=== PATIENT | female | born 1945 | race Caucasian/White ===

== ENCOUNTER → 2016-03-05 | Outpatient (REF) | payer BC, MEDICARE ==
[~2016-03-05] MED LIST: ALBU17IN2 INH; ALBU83IN INH; CALCTAB60 PO; CLAR5TAB PO; DIOV160T6 PO; ESTR625TA PO; HYDR25TAB PO; LASI40TA PO; LIPI10TA PO; MOBI15TA PO; MULT1TAB10 PO; NEXI40CA PO; PAME75CA PO; REQU1TAB16 PO; VERA27.5; VITA500C14 PO; VITAMIN E PO; VITATAB11 PO
[2016-03-05 11:53] LABS: ALBUMIN 3.9 GM/DL (3.2-5.2); PERCENT SATURATION 23.5 % (13.2-37.4)
== END ==
LOC: M LABDRAWC 11:09
PROVIDERS: ATTEND Orthopaedic Surgery
DX: Z51.81 Encounter for therapeutic drug level monitoring (principal); Z79.899 Other long term (current) drug therapy; M25.569 Pain in unspecified knee; M17.12 Unilateral primary osteoarthritis, left knee

== ENCOUNTER → 2017-08-26 | Outpatient (CLI) | payer BC, MEDICARE | LOC: M CLY 07:50 | DX: R91.8 Other nonspecific abnormal finding of lung field (principal) | CPT/HCPCS: G0463 ==

== ENCOUNTER → 2017-09-29 | Outpatient (CLI) | payer BC, MEDICARE | LOC: M CLY 09:19 | DX: R91.8 Other nonspecific abnormal finding of lung field (principal) | CPT/HCPCS: 71046 ==

== ENCOUNTER → 2017-11-03 | Outpatient (REF) | payer BC, MEDICARE ==
[2017-11-03 12:04] LABS: ALBUMIN 3.6 GM/DL (3.2-5.2); ALBUMIN/GLOBULIN RATIO 0.92 (1.00-1.93); ALKALINE PHOSPHATASE 113 U/L (45-117); ALT/SGPT 17 U/L (12-78); ANION GAP 7 MEQ/L (8-16); AST/SGOT 15 U/L (7-37); BILIRUBIN,TOTAL 0.5 MG/DL (0.2-1.0); BLOOD UREA NITROGEN 31 MG/DL (7-18); CALCIUM LEVEL 9.3 MG/DL (8.8-10.2); CARBON DIOXIDE LEVEL 30 MEQ/L (21-32); CHLORIDE LEVEL 100 MEQ/L (98-107); CHOLESTEROL LEVEL 184 MG/DL (<200); CHOLESTEROL RISK RATIO 2.389 (<5); CREATININE FOR GFR 1.36 MG/DL (0.55-1.30); FREE T4 1.16 NG/DL (0.76-1.46); GLOMERULAR FILTRATION RATE 40.6 (>39); GLUCOSE, FASTING 95 MG/DL (70-100); HDL CHOLESTEROL 77 MG/DL (>40); LDL CHOLESTEROL 86 MG/DL (<100); NON-HDL-C 107 MG/DL; POTASSIUM SERUM 3.7 MEQ/L (3.5-5.1); SODIUM LEVEL 137 MEQ/L (136-145); TOTAL PROTEIN 7.5 GM/DL (6.4-8.2); TRIGLYCERIDES LEVEL 105 MG/DL (<150)
[2017-11-03 16:43] LABS: ESTIMATED AVERAGE GLUCOSE 123 MG/DL (60-110); HEMOGLOBIN A1c 5.9 %
[2017-11-03 18:51] LABS: CREATININE, URINE 84.9 MG/DL; MALB URINE SIEMENS < 5.0 MG/L
[2017-11-03 19:12] LABS: MAU/CREAT RATIO 5.9 MCG/MG (0.0-30.0)
== END ==
LOC: M SFHCCLAY 07:02
DX: E11.9 Type 2 diabetes mellitus without complications (principal); I10 Essential (primary) hypertension; E78.00 Pure hypercholesterolemia, unspecified
CPT/HCPCS: 84443

== ENCOUNTER → 2017-11-03 | Outpatient (CLI) | payer BC, MEDICARE | LOC: M CLY 07:19 | DX: J18.0 Bronchopneumonia, unspecified organism (principal) | CPT/HCPCS: 71046 ==

== ENCOUNTER → 2017-11-09 | Outpatient (REF) | payer BC, MEDICARE ==
[2017-11-09 17:32] LABS: ALBUMIN 3.4 GM/DL (3.2-5.2); ANION GAP 13 MEQ/L (8-16); BLOOD UREA NITROGEN 24 MG/DL (7-18); CALCIUM LEVEL 9.2 MG/DL (8.8-10.2); CARBON DIOXIDE LEVEL 26 MEQ/L (21-32); CHLORIDE LEVEL 103 MEQ/L (98-107); CREATININE FOR GFR 1.05 MG/DL (0.55-1.30); GLOMERULAR FILTRATION RATE 54.7 (>39); GLUCOSE, FASTING 89 MG/DL (70-100); PHOSPHORUS LEVEL 2.9 MG/DL (2.5-4.9); POTASSIUM SERUM 3.4 MEQ/L (3.5-5.1); SODIUM LEVEL 142 MEQ/L (136-145)
== END ==
LOC: M SFHCCLAY 14:11
DX: I10 Essential (primary) hypertension (principal)
CPT/HCPCS: 80069

== ENCOUNTER → 2018-01-19 | Outpatient (REF) | payer BC, MEDICARE ==
[2018-01-19 16:57] LABS: ANION GAP 9 MEQ/L (8-16); BLOOD UREA NITROGEN 31 MG/DL (7-18); CALCIUM LEVEL 9.5 MG/DL (8.8-10.2); CARBON DIOXIDE LEVEL 31 MEQ/L (21-32); CHLORIDE LEVEL 102 MEQ/L (98-107); CREATININE FOR GFR 1.36 MG/DL (0.55-1.30); GLOMERULAR FILTRATION RATE 40.5 (>39); GLUCOSE, FASTING 119 MG/DL (70-100); NT-PRO BNP 94 PG/ML (<125); POTASSIUM SERUM 3.2 MEQ/L (3.5-5.1); SODIUM LEVEL 142 MEQ/L (136-145)
== END ==
LOC: M SFHCCLAY 13:08
DX: R05 Cough (principal); I10 Essential (primary) hypertension
CPT/HCPCS: 80048

== ENCOUNTER → 2018-01-27 | Outpatient (REF) | payer BC, MEDICARE ==
[2018-01-27 11:39] LABS: ANION GAP 7 MEQ/L (8-16); BLOOD UREA NITROGEN 16 MG/DL (7-18); CALCIUM LEVEL 8.6 MG/DL (8.8-10.2); CARBON DIOXIDE LEVEL 25 MEQ/L (21-32); CHLORIDE LEVEL 110 MEQ/L (98-107); CREATININE FOR GFR 0.98 MG/DL (0.55-1.30); GLOMERULAR FILTRATION RATE 59.1 (>39); GLUCOSE, FASTING 93 MG/DL (70-100); POTASSIUM SERUM 4.7 MEQ/L (3.5-5.1); SODIUM LEVEL 142 MEQ/L (136-145)
== END ==
LOC: M SFHCCLAY 08:56
DX: I10 Essential (primary) hypertension (principal)
CPT/HCPCS: 80048

== ENCOUNTER → 2018-04-13 | Outpatient (REF) | payer BC, MEDICARE ==
[~2018-04-13] MED LIST changes: -LASI40TA PO; +LASI40TA9 PO
== END ==
LOC: M SFHCCLAY 16:02
PROVIDERS: ATTEND Family Medicine
DX: J40 Bronchitis, not specified as acute or chronic (principal)

== ENCOUNTER → 2018-04-13 | Outpatient (CLI) | payer BC, MEDICARE ==
--- NOTE | 2018-04-13 13:17 | REP ---
Clinical: Bronchitis . Comparison: 11/03/2017 . Technique: PA and lateral. Findings: The mediastinum and cardiac silhouette are normal. The lung fischer are clear and without acute consolidation, effusion, or pneumothorax. The skeletal structures are intact and normal. Impression: 1. No acute cardiopulmonary process. Electronically Signed by Artem Ramon MD 04/13/2018 01:09 P
== END ==
LOC: M CLY 12:12
PROVIDERS: ATTEND Family Medicine
DX: J40 Bronchitis, not specified as acute or chronic (principal)

== ENCOUNTER → 2019-02-02 | Outpatient (REF) | payer BC, MEDICARE ==
[~2019-02-02] MED LIST changes: +HYDR-2541 PO; -HYDR25TAB PO
[2019-02-02 11:35] LABS: HEMATOCRIT 36.8 % (36.0-47.0); HEMOGLOBIN 11.6 g/dl (12.0-15.5); MEAN CORPUSCULAR HGB CONC 31.5 g/dl (32.0-36.5); MEAN CORPUSCULAR VOLUME 95.1 fl (80.0-96.0); PLATELET COUNT, AUTOMATED 269 10^3/uL (150-450); RED BLOOD COUNT 3.87 10^6/uL (4.00-5.40); WHITE BLOOD COUNT 8.1 10^3/uL (4.0-10.0)
[2019-02-02 11:47] LABS: ALBUMIN 3.3 GM/DL (3.2-5.2); BILIRUBIN,TOTAL 0.4 MG/DL (0.2-1.0); CHOLESTEROL RISK RATIO 2.195 (<5); CREATININE FOR GFR 1.26 MG/DL (0.55-1.30); GLOMERULAR FILTRATION RATE 44.1 (>39); THYROID STIMULATING HORMONE 4.14 uIU/ML (0.358-3.740)
[2019-02-02 12:02] LABS: HEMOGLOBIN A1c 5.9 %
[2019-02-02 17:07] LABS: MALB URINE SIEMENS 7.2 MG/L; MAU/CREAT RATIO 6.6 MCG/MG (0.0-30.0)
[2019-02-03 12:08] LABS: HEPATITIS C VIRUS ABY INDEX 0.2 INDEX (<0.8)
== END ==
LOC: M SFHCCLAY 08:05
PROVIDERS: ATTEND Family Medicine
DX: Z20.9 Contact with and (suspected) exposure to unspecified communicable disease (principal); I10 Essential (primary) hypertension; E11.9 Type 2 diabetes mellitus without complications; E78.00 Pure hypercholesterolemia, unspecified

== ENCOUNTER → 2019-07-13 | Outpatient (REF) | payer BC, MEDICARE ==
[2019-07-13 12:45] LABS: ALBUMIN 3.5 GM/DL (3.2-5.2); BILIRUBIN,TOTAL 0.4 MG/DL (0.2-1.0); CALCIUM LEVEL 9.2 MG/DL (8.8-10.2); CREATININE FOR GFR 1.13 MG/DL (0.55-1.30); FREE T4 1.35 NG/DL (0.76-1.46); POTASSIUM SERUM 4.1 MEQ/L (3.5-5.1); THYROID STIMULATING HORMONE 2.51 uIU/ML (0.358-3.740); TOTAL PROTEIN 7.1 GM/DL (6.4-8.2)
[2019-07-13 18:40] LABS: CREATININE, URINE 95.2 MG/DL
[2019-07-13 21:44] LABS: MALB URINE SIEMENS 8.7 MG/L; MAU/CREAT RATIO 9.1 MCG/MG (0.0-30.0)
== END ==
LOC: M SFHCCLAY 09:35
PROVIDERS: ATTEND Family Medicine
DX: I10 Essential (primary) hypertension (principal); E11.9 Type 2 diabetes mellitus without complications; R79.89 Other specified abnormal findings of blood chemistry

== ENCOUNTER → 2019-07-19 | Outpatient (REF) | payer BC, MEDICARE ==
[2019-07-19 16:46] LABS: HEMATOCRIT 38.3 % (36.0-47.0); HEMOGLOBIN 12.1 g/dl (12.0-15.5); MEAN CORPUSCULAR HEMOGLOBIN 29.5 pg (27.0-33.0); MEAN CORPUSCULAR HGB CONC 31.6 g/dl (32.0-36.5); MEAN CORPUSCULAR VOLUME 93.4 fl (80.0-96.0); PLATELET COUNT, AUTOMATED 254 10^3/uL (150-450); WHITE BLOOD COUNT 6.3 10^3/uL (4.0-10.0)
[2019-07-19 17:09] LABS: HEMOGLOBIN A1c 6.5 %
[2019-07-19 17:59] LABS: ERYTHROCYTE SEDIMENTATION RATE 49 mm/hr (0-30)
[2019-07-22 18:22] LABS: ANA (HEP2) Negative (.); CYCLIC CITRULLINATED PEPTIDE 6 units (0-19); Lyme Disease IgG/IgM Antibodie <0.91 ISR (0.00-0.90); Lyme Disease IgM Ab Quantitati <0.80 index (0.00-0.79)
== END ==
LOC: M SFHCCLAY 10:26
PROVIDERS: ATTEND Family Medicine
DX: E11.9 Type 2 diabetes mellitus without complications (principal); I87.2 Venous insufficiency (chronic) (peripheral); R53.82 Chronic fatigue, unspecified

== ENCOUNTER → 2019-08-14 | Outpatient (CLI) | payer BC ==
[~2019-08-14] MED LIST changes: +CRES10TA PO; +HYDR25TAB PO; +LOSA100T50 PO; +MOME50SP; +MULTTAB86 PO; +PROV108A INH; +REQU2TAB PO; +TOPR25TA PO; +TREL1AER IN
== END ==
LOC: M LABSMTC 09:28
PROVIDERS: ATTEND Anesthesiology
DX: Z01.818 Encounter for other preprocedural examination (principal); Z11.59 Encounter for screening for other viral diseases
CPT/HCPCS: C9803; U0003

== ENCOUNTER 2019-08-17 06:50 | Day surgery (SDC) | payer BC ==
[~2019-08-17] VITALS: Ht 154.9 cm; Wt 98.4 kg
[2019-08-17] MEDS ORDERED: LIDOCAINE 2% MDV 20ML VIAL As Ordered ONE (06:59)
[2019-08-17] MEDS ORDERED: propofoL 200 MG/20 ML VIAL As Ordered ONE ×6 (06:59→08:38)
[2019-08-17] MEDS ORDERED: NS 1,000 ML IV ONE (07:00)
--- NOTE | 2019-08-17 08:51 | ROOR ---
Patient Name: Carolina Patino Procedure Date: 08/17/2019 7:29 AM Date of : 1945 Age: 73 Room: [facility] Gender: Female Note Status: Finalized Procedure: Upper GI endoscopy Indications: Follow-up of esophageal reflux Providers: Corbin Carmen MD Referring MD: Shin French MD Requesting Provider: Medicines: Monitored Anesthesia Care Complications: No immediate complications. Procedure: Pre-Anesthesia Assessment: - Prior to the procedure, a History and Physical was performed, and patient medications and allergies were reviewed. The patient is competent. The risks and benefits of the procedure and the sedation options and risks were discussed with the patient. All questions were answered and informed consent was obtained. Patient identification and proposed procedure were verified by the physician, the nurse and the business process associate in the procedure room. Mental Status Examination: alert and oriented. CV Examination: regular rate and rhythm. Prophylactic Antibiotics: The patient does not require prophylactic antibiotics. Prior Anticoagulants: The patient has taken no previous anticoagulant or antiplatelet agents. ASA Grade Assessment: III - A patient with severe systemic disease. After reviewing the risks and benefits, the patient was deemed in satisfactory condition to undergo the procedure. The anesthesia plan was to use monitored anesthesia care (MAC). Immediately prior to administration of medications, the patient was re-assessed for adequacy to receive sedatives. The heart rate, respiratory rate, oxygen saturations, blood pressure, adequacy of pulmonary ventilation, and response to care were monitored throughout the procedure. The physical status of the patient was re-assessed after the procedure. The Endoscope was introduced through the mouth, and advanced to the third part of duodenum. The upper GI endoscopy was accomplished without difficulty. The patient tolerated the procedure well. Findings: The examined esophagus was normal. A small hiatal hernia was present. Multiple small sessile polyps were found in the gastric fundus and on the greater curvature of the stomach. Localized mild inflammation characterized by erythema was found on the posterior wall of the stomach. The examined duodenum was normal. Impression: - Normal esophagus. - Small hiatal hernia. - Multiple gastric polyps. - Chronic gastritis. - Normal examined duodenum. - No specimens collected. Recommendation: - Discharge patient to home. - Resume previous diet. - Continue present medications. Corbin Carmen MD Corbin Carmen MD 08/17/2019 8:50:36 AM Electronically signed by Corbin Carmen MD Number of Addenda: 0 Note Initiated On: 08/17/2019 7:29 AM Estimated Blood Loss: Estimated blood loss: none.
[2019-08-17 09:00] VITALS: BP 160/69
--- NOTE | 2019-08-17 09:57 | ROOR ---
Patient Name: Carolina Patino Procedure Date: 08/17/2019 7:31 AM Date of : 1945 Age: 73 Room: [facility] Gender: Female Note Status: Finalized Procedure: Colonoscopy Indications: High risk colon cancer surveillance: Personal history of non-advanced adenoma, Last colonoscopy: June 2015 Providers: Corbin Carmen MD Referring MD: Shin French MD Requesting Provider: Medicines: Monitored Anesthesia Care Complications: No immediate complications. Procedure: Pre-Anesthesia Assessment: - Prior to the procedure, a History and Physical was performed, and patient medications and allergies were reviewed. The patient is competent. The risks and benefits of the procedure and the sedation options and risks were discussed with the patient. All questions were answered and informed consent was obtained. Patient identification and proposed procedure were verified by the physician, the nurse and the soft iron inspector in the procedure room. Mental Status Examination: alert and oriented. CV Examination: regular rate and rhythm. Prophylactic Antibiotics: The patient does not require prophylactic antibiotics. Prior Anticoagulants: The patient has taken no previous anticoagulant or antiplatelet agents. ASA Grade Assessment: III - A patient with severe systemic disease. After reviewing the risks and benefits, the patient was deemed in satisfactory condition to undergo the procedure. The anesthesia plan was to use monitored anesthesia care (MAC). Immediately prior to administration of medications, the patient was re-assessed for adequacy to receive sedatives. The heart rate, respiratory rate, oxygen saturations, blood pressure, adequacy of pulmonary ventilation, and response to care were monitored throughout the procedure. The physical status of the patient was re-assessed after the procedure. The Colonoscope was introduced through the anus and advanced to the cecum, identified by appendiceal orifice and ileocecal valve. The colonoscopy was performed without difficulty. The patient tolerated the procedure well. The quality of the bowel preparation was excellent. Findings: The perianal and digital rectal examinations were normal. Two sessile polyps were found in the cecum. The polyps were 3 to 5 mm in size. These polyps were removed with a hot snare. Resection and retrieval were complete. Two sessile polyps were found in the ascending colon. The polyps were 4 to 6 mm in size. These polyps were removed with a hot snare. Resection and retrieval were complete. A 8 mm polyp was found in the hepatic flexure. The polyp was sessile. The polyp was removed with a hot snare. Resection and retrieval were complete. Eight sessile polyps were found in the transverse colon. The polyps were 3 to 7 mm in size. These polyps were removed with a hot snare. Resection and retrieval were complete. Two sessile polyps were found in the descending colon. The polyps were 3 to 5 mm in size. These polyps were removed with a hot snare. Resection and retrieval were complete. Multiple small-mouthed diverticula were found in the sigmoid colon. A 3 mm polyp was found in the sigmoid colon. The polyp was sessile. Fulguration to ablate the lesion by snare was successful. Impression: - Two 3 to 5 mm polyps in the cecum, removed with a hot snare. Resected and retrieved. - Two 4 to 6 mm polyps in the ascending colon, removed with a hot snare. Resected and retrieved. - One 8 mm polyp at the hepatic flexure, removed with a hot snare. Resected and retrieved. - Eight 3 to 7 mm polyps in the transverse colon, removed with a hot snare. Resected and retrieved. - Two 3 to 5 mm polyps in the descending colon, removed with a hot snare. Resected and retrieved. - Diverticulosis in the sigmoid colon. Recommendation: - Discharge patient to home. Corbin Carmen MD Corbin Carmen MD 08/17/2019 9:57:07 AM Electronically signed by Corbin Carmen MD Number of Addenda: 0 Note Initiated On: 08/17/2019 7:31 AM Estimated Blood Loss: Estimated blood loss: none.
== END 2019-08-17 09:19 | disposition home or self-care (01) ==
LOC: M OPP 06:50
PROVIDERS: ATTEND Surgery
DX: Z12.11 Encounter for screening for malignant neoplasm of colon (principal); Z86.010 Personal history of colon polyps; Z80.0 Family history of malignant neoplasm of digestive organs; D12.2 Benign neoplasm of ascending colon; D12.3 Benign neoplasm of transverse colon; D12.4 Benign neoplasm of descending colon; K57.30 Diverticulosis of large intestine without perforation or abscess without bleeding; K21.9 Gastro-esophageal reflux disease without esophagitis; K44.9 Diaphragmatic hernia without obstruction or gangrene; K29.70 Gastritis, unspecified, without bleeding; E11.9 Type 2 diabetes mellitus without complications; Z79.899 Other long term (current) drug therapy; Z88.2 Allergy status to sulfonamides; Z88.8 Allergy status to other drugs, medicaments and biological substances

== ENCOUNTER → 2020-01-23 | Outpatient (REF) | payer SELFPAY ==
[~2020-01-23] MED LIST changes: +ACET-683 PO; +AREDS PO; +BENZ-18 PO; +BETA0.0543 TOP; +DOXY100T PO; +HYDR-3490 PO; -HYDR25TAB PO; +MUCI600T31 PO; +NORT50CA PO; +PRED10TA2 PO; -TREL1AER IN; +TREL1AER INH
== END ==
LOC: M LABSMTC 13:39 → EDSTATUS 15:30
PROVIDERS: ATTEND Pediatrics
DX: Z11.59 Encounter for screening for other viral diseases (principal)

== ENCOUNTER 2020-02-17 19:08 | Inpatient (IN) | payer BC ==
[~2020-02-17] VITALS: Ht 154.9 cm; Wt 100.0 kg
[~2020-02-17 19:08] MED LIST changes: -ACET-683 PO; -AREDS PO; -BENZ-18 PO; -BETA0.0543 TOP; -DOXY100T PO; -HYDR-3490 PO; +HYDR25TAB PO; -MUCI600T31 PO; -NORT50CA PO; -PRED10TA2 PO
[2020-02-17] MEDS ORDERED: NS 500 ML IV ONE (19:30)
[2020-02-17] MEDS ORDERED: NORT50CA PO (20:06)
[2020-02-17] MEDS ORDERED: ACET-683 PO (20:07)
[2020-02-17] MEDS ORDERED: DOXY100T PO (20:07)
[2020-02-17] MEDS ORDERED: BETA0.0543 TOP (20:07)
[2020-02-17 20:08] LABS: BASO % 0.4 % (0.0-1.0); HEMATOCRIT 37.1 % (36.0-47.0); HEMOGLOBIN 11.7 g/dl (12.0-15.5); LYMPH # 0.4 10^3/uL (1.5-5.0); LYMPH % 8.3 % (24.0-44.0); MEAN CORPUSCULAR HEMOGLOBIN 29.3 pg (27.0-33.0); MEAN CORPUSCULAR HGB CONC 31.5 g/dl (32.0-36.5); MEAN CORPUSCULAR VOLUME 92.8 fl (80.0-96.0); MONO # 0.1 10^3/uL (0.0-0.8); MONO % 2.4 % (0.0-5.0); NEUTROPHILS # 4.5 10^3/uL (1.5-8.5); NEUTROPHILS % 88.3 % (36.0-66.0); PLATELET COUNT, AUTOMATED 167 10^3/uL (150-450); WHITE BLOOD COUNT 5.1 10^3/uL (4.0-10.0)
[2020-02-17] MEDS ORDERED: AREDS PO (20:08)
--- NOTE | 2020-02-17 20:16 | REP ---
INDICATION: Coronavirus workup COMPARISON: 04/13/2018 TECHNIQUE: Portable AP view of the chest FINDINGS: Examination is limited by portable technique and poor inspiratory effort. Scattered airspace disease cannot be excluded. No obvious effusion. No pneumothorax. Cardiac silhouette normal.. IMPRESSION: Limited examination. Cannot exclude scattered airspace disease. <Electronically signed by Artem Ramon > 02/17/202011
[2020-02-17] MEDS: COMBIVENT RESPIMAT 100-20MCG INHALER 4GM INH SCH ×2 (20:45→20:55)
[2020-02-17 20:59] LABS: ALBUMIN 2.8 GM/DL (3.2-5.2); ALT/SGPT 19 U/L (12-78); BILIRUBIN,TOTAL 0.5 MG/DL (0.2-1.0); BLOOD UREA NITROGEN 19 MG/DL (7-18); CALCIUM LEVEL 8.2 MG/DL (8.8-10.2); CARBON DIOXIDE LEVEL 27 MEQ/L (21-32); CHLORIDE LEVEL 105 MEQ/L (98-107); CK-MB VALUE MASS 2.3 NG/ML (<3.6); CPK CREATINE PHOSPHOKINASE 383 U/L (26-192); CREATININE FOR GFR 1.28 MG/DL (0.55-1.30); GLOMERULAR FILTRATION RATE 43.2 (>39); GLUCOSE, FASTING 118 MG/DL (70-100); MAGNESIUM LEVEL 1.3 MG/DL (1.8-2.4); POTASSIUM SERUM 3.2 MEQ/L (3.5-5.1); SODIUM LEVEL 140 MEQ/L (136-145); TOTAL PROTEIN 6.5 GM/DL (6.4-8.2); TROPONIN I < 0.02 NG/ML (< 0.10)
[2020-02-17 21:19] LABS: ABG BASE EXCESS -1.6 (-2.0-2.0); ABG O2 SATURATION 96.4 % (95.0-99.0); ABG PARTIAL PRESSURE CO2 33.4 mmHg (35.0-45.0); ABG PARTIAL PRESSURE O2 82.1 mmHg (75.0-100.0); ABG STANDARD HCO3 23.1 MEQ/L (22.0-26.0); ABG pH (ARTERIAL) 7.436 UNITS (7.350-7.450)
--- NOTE | 2020-02-17 23:40 | HPEPDOC ---
[facility] Medical History & Physical Date of Admission Feb 17, 2020 Date of Service: Feb 17, 2020 History and Physical CHIEF COMPLAINT: Shortness of breath HISTORY OF PRESENT ILLNESS: 74-year-old female history of hypertension, diabetes, obesity was diagnosed with Covid infection 6 days ago around [place] and per symptoms have been progressively worsening since then. She presented today to the hospital due to weakness fatigue dizziness and increased shortness of breath. She tells me she's been having a headache and the cough she denies any fevers or chills at home. She denies any diarrhea. PAST MEDICAL HISTORY: Hypertension GERD Hyperlipidemia Depression/anxiety Osteoarthritis Hsp-[id number] diabetes Allergic rhinitis Asthma PAST SURGICAL HISTORY: Tubal ligation Hysterectomy Gallbladder removal Breast reduction surgery SOCIAL HISTORY: Denies alcohol use Denies tobacco use Denies illicit drug use FAMILY HISTORY: Reviewed and none contributory to this admission ALLERGIES: Please see below. REVIEW OF SYSTEMS: 10 point review of systems complete all negative otherwise stated in HPI HOME MEDICATIONS: Please see below. PHYSICAL EXAMINATION: Constitutional: Awake and alert, in no apparent distress. Obese patient. ENT: Sclera are clear Respiratory: Diminished breath sounds bilaterally. No respiratory distress. No use of accessory muscles. On 2 L of oxygen by nasal cannula saturating at 98% Cardiovascular: Regular heart rate no murmur Gastrointestinal: Abdomen is soft, obese, non distended, non tender Musculoskeletal: No lower extremityr edema. Neurologic: No focal neurological deficit. Mental Status: A&O x3, normal affect Skin: Warm, dry LABORATORY DATA: See below. IMAGING: Chest x-ray shows no acute pathology MICROBIOLOGY: Please see below. ASSESSMENT/PLAN 74-year-old female presents with shortness of breath secondary to Covid 19 infection admitted for medical management. # Shortness of breath 2/2 Covid 19 infection: Has multiple risk factors for poor outcomes with Covid 19 infection such as obesity, hypertension and diabetes. - Trend inflammatory markers. IV Decadron daily. Discuss in AM with pulm if she should receive rimdasivir. Lovenox. Oxygen target 90% or better. PT/OT. No pneumonia seen no need for antibiotics for now, follow-up pro-calcitonin in a.m. # Asthma: Continue albuterol inhaler as needed # Hypertension: Continue home meds. Monitor and titrate # GERD: Continue Nexium # DM: ISS. Frequent Accu-Cheks. Hypoglycemic precautions. # Anxiety/depression: Continue amitriptyline home med # obesity: Complicates care # DVT prophylaxis: Mayela García Yousef Hospitalist Vital Signs Vital Signs Date Time Temp Pulse Resp B/P (MAP) Pulse Ox O2 Delivery O2 Flow Rate FiO2 02/17/20 20:02 98 Nasal Cannula 2.0 02/17/20 19:52 99.9 103 20 160/60 (93) Laboratory Data Labs 24H Laboratory Tests 2 02/17/20 19:59: Immature Granulocyte % (Auto) 0.6, Neutrophils (%) (Auto) 88.3H, Lymphocytes (%) (Auto) 8.3L, Monocytes (%) (Auto) 2.4, Eosinophils (%) (Auto) 0.0, Basophils (%) (Auto) 0.4, Neutrophils # (Auto) 4.5, Lymphocytes # (Auto) 0.4L, Monocytes # (Auto) 0.1, Eosinophils # (Auto) 0.0, Basophils # (Auto) 0.0, Nucleated Red Blood Cells % (auto) 0.0, Anion Gap 8, Glomerular Filtration Rate 43.2, Lactic Acid Level 1.8, Calcium Level 8.2L, Magnesium Level 1.3L, Total Bilirubin 0.5, Aspartate Amino Transf (AST/SGOT) 39H, Alanine Aminotransferase (ALT/SGPT) 19, Alkaline Phosphatase 86, Total Creatine Kinase 383H, Creatine Kinase MB 2.3, Creatine Kinase MB Relative Index 0.60, Troponin I < 0.02, C-Reactive Protein, Quantitative 27.40H, Total Protein 6.5, Albumin 2.8L, Albumin/Globulin Ratio 0.8L 02/17/20 20:53: Blood Gas Bicarbonate Standard 23.1, Arterial Blood pH 7.436, Arterial Blood Partial Pressure CO2 33.4L, Arterial Blood Partial Pressure O2 82.1, Arterial Blood Total CO2 23.0, Arterial Blood HCO3 22.0, Arterial Blood Base Excess -1.6, Arterial Blood Oxygen Saturation 96.4 CBC/BMP Laboratory Tests 02/17/20 19:59 Microbiology Microbiology 02/17/20 Blood Culture, Received Pending 02/17/20 Blood Culture, Received Pending Home Medications Scheduled Albuterol Sulfate (Proventil Hfa) 6.7 Gm Hfa.aer.ad, 2 PUFF INH QID for wheezing Conjugated Estrogens (Premarin) 0.625 Mg Tab, 0.625 MG PO 3XW Desloratadine (Clarinex) 5 Mg Tab, 5 MG PO DAILY Doxycycline Hyclate (Doxycycline Hyclate) 100 Mg Tablet, 100 MG PO BID STARTED 02/04/20 X 10 DAYS Esomeprazole Magnesium (Nexium) 40 Mg Cap, 40 MG PO BID Fluticasone/Umeclidin/Vilanter (Trelegy Ellipta 100-62.5-25) 1 Each Blst.w.dev, 1 PUFF INH DAILY Hydrochlorothiazide (Hydrochlorothiazide) 25 Mg Tablet, 25 MG PO DAILY Losartan Potassium (Losartan Potassium) 100 Mg Tablet, 100 MG PO DAILY Metoprolol Succinate (Toprol Xl) 25 Mg Tab.er.24h, 12.5 MG PO DAILY Mometasone Furoate Monohydrate (Nasonex) 17 Gm [place].pump, 1 SPRAY NA DAILY Multivitamin (Multi-Vitamin Daily) 1 Each Tablet, 1 TAB PO DAILY Nortriptyline HCl (Nortriptyline HCl) 50 Mg Capsule, 50 MG PO QHS MAY TAKE 1-2 CAPS QHS Ropinirole HCl (Requip Xl) 2 Mg Tab.er.24h, 2 MG PO QHS MAY TAKE 1-2 TABS QHS Rosuvastatin Calcium (Crestor) 10 Mg Tablet, 10 MG PO DAILY [Areds] , 1 TAB PO DAILY Scheduled PRN Acetaminophen (Acetaminophen) 500 Mg Tablet, 1,000 MG PO Q6H PRN for PAIN / FEVER Albuterol Sulf (Albuterol Sulfate) 2.5 Mg/3 Ml Nebu, 2.5 MG INH Q4HP PRN for BRONCHOSPASM Betamethasone Dipropionate (Betamethasone Dipropionate) 0.05% Cream..g., 1 APLCT TOP BID PRN for DRY SKIN ELBOWS Furosemide (Lasix) 40 Mg Tab, 40 MG PO DAILYPRN PRN for FOR COMFORT Allergies Coded Allergies: Sulfa (Sulfonamide Antibiotics) (Verified Allergy, Severe, mouth swelling, 08/03/19) levofloxacin (Verified Adverse Reaction, Mild, muscle aches, 08/03/19) propoxyphene (Verified Adverse Reaction, Mild, nausea, 08/03/19) A-FIB/CHADSVASC A-FIB History Current/History of A-Fib/PAF?: No GOGORAS LOZA MD Feb 17, 2020 23:39
[2020-02-18] VITALS (9 sets, daily range): BP systolic 138–148; BP diastolic 63–65; O2SAT 86–96
[2020-02-18] MEDS: COMBIVENT RESPIMAT 100-20MCG INHALER 4GM INH SCH
[2020-02-18] MEDS ORDERED: FUROSEMIDE 40 MG TAB PO PRN (01:00)
[2020-02-18] MEDS: ACETAMINOPHEN TAB 650MG DOSE (2X325MG) PO PRN ×2 (01:17→08:21)
[2020-02-18] MEDS: ENOXAPARIN 40MG/0.4ML SYRINGE (J1650 PER 10MG) SC SCH ×2 (01:18→08:20)
[2020-02-18 07:52] LABS: BASO % 0.2 % (0.0-1.0); HEMATOCRIT 35.7 % (36.0-47.0); HEMOGLOBIN 11.2 g/dl (12.0-15.5); LYMPH # 0.5 10^3/uL (1.5-5.0); LYMPH % 9.2 % (24.0-44.0); MEAN CORPUSCULAR HEMOGLOBIN 29.2 pg (27.0-33.0); MEAN CORPUSCULAR HGB CONC 31.4 g/dl (32.0-36.5); MONO # 0.2 10^3/uL (0.0-0.8); MONO % 2.7 % (0.0-5.0); NEUTROPHILS # 4.8 10^3/uL (1.5-8.5); NEUTROPHILS % 86.6 % (36.0-66.0); PLATELET COUNT, AUTOMATED 177 10^3/uL (150-450); RED BLOOD COUNT 3.84 10^6/uL (4.00-5.40); WHITE BLOOD COUNT 5.6 10^3/uL (4.0-10.0)
[2020-02-18 08:10] LABS: INR 1.15
[2020-02-18 08:11] LABS: PARTIAL THROMBOPLASTIN TIME 45.2 SECONDS (24.2-38.5)
[2020-02-18 08:15] LABS: D-DIMER QUANT 2432.03 ng/ml (<500)
[2020-02-18] MEDS: DOXYCYCLINE HYCLATE 100 MG in D5W MINI-BAG PLUS 100 ML IV SCH ×2 (08:18→20:07)
[2020-02-18] MEDS: MAG SULF 1GM/100ML (MAG RUN) 1 GM in IV 1 EA IV SCH ×2 (08:19→09:38)
[2020-02-18] MEDS: ROSUVASTATIN 10 MG TAB (CRESTOR) PO SCH (08:21)
[2020-02-18] MEDS: LOSARTAN 50MG TABLET PO SCH (08:21)
[2020-02-18] MEDS: hydroCHLOROthiazide 25 MG TAB PO SCH (08:22)
[2020-02-18] MEDS: PANTOPRAZOLE 40MG TAB (PROTONIX) PO SCH ×2 (08:22→20:07)
[2020-02-18] MEDS: METOPROLOL SUCC *XL* 12.5MG PER 1/2 TAB (TopROL *XL*) PO SCH (08:22)
--- NOTE | 2020-02-18 08:25 | REP ---
INDICATION: COVID COMPARISON: 02/17/2020 TECHNIQUE: Portable AP view of the chest FINDINGS: Diffuse bilateral opacities (left greater than right) significantly increased from prior examination and consistent with COVID-19 pulmonary disease. Small effusions cannot be excluded. No pneumothorax. Mediastinum and cardiac silhouette are incompletely evaluated due to overlying opacities. IMPRESSION: Significant diffuse bilateral infiltrates compatible with COVID-19 pulmonary disease. <Electronically signed by Artem Ramon > 02/18/20 [id number]
[2020-02-18 08:40] LABS: ALBUMIN 2.4 GM/DL (3.2-5.2); ALT/SGPT 17 U/L (12-78); BILIRUBIN,DIRECT 0.2 MG/DL (0.0-0.2); BILIRUBIN,TOTAL 0.4 MG/DL (0.2-1.0); BLOOD UREA NITROGEN 14 MG/DL (7-18); CARBON DIOXIDE LEVEL 25 MEQ/L (21-32); CHLORIDE LEVEL 109 MEQ/L (98-107); CK-MB VALUE MASS 2.4 NG/ML (<3.6); CPK CREATINE PHOSPHOKINASE 404 U/L (26-192); CREATININE FOR GFR 0.96 MG/DL (0.55-1.30); FERRITIN 243 NG/ML (8-252); GLOMERULAR FILTRATION RATE > 60.0 (>39); GLUCOSE, FASTING 105 MG/DL (70-100); LDH LACTATE DEHYDROGENASE 437 U/L (84-246); MB/CK RELATIVE INDEX 0.59 (< OR =4); NT-PRO BNP 622 PG/ML (<450); POTASSIUM SERUM 3.4 MEQ/L (3.5-5.1); SODIUM LEVEL 141 MEQ/L (136-145); TROPONIN I < 0.02 NG/ML (< 0.10)
[2020-02-18] MEDS ORDERED: POTASSIUM CHLORIDE 10 MEQ SR TABLET PO ONE (09:00)
[2020-02-18] MEDS ORDERED: dexameTHASONE 4 MG/ML 1ML VIAL (J1100 PER 1MG) IV SCH (09:00)
[2020-02-18] MEDS: cefTRIAXone SOD 1 GM in D5W MINI-BAG PLUS 50 ML IV SCH (09:32)
[2020-02-18] MEDS: ALBUTEROL 90 MCG/ACT 8GM HFA INHALER INH SCH ×4 (09:50→19:02)
[2020-02-18 10:09] LABS: ABG BASE EXCESS 0.3 (-2.0-2.0); ABG HCO3 24.6 MEQ/L (22.0-26.0); ABG O2 SATURATION 96.9 % (95.0-99.0); ABG PARTIAL PRESSURE CO2 38.4 mmHg (35.0-45.0); ABG PARTIAL PRESSURE O2 83.7 mmHg (75.0-100.0); ABG STANDARD HCO3 24.8 MEQ/L (22.0-26.0); ABG TOTAL CO2 25.8 MEQ/L (23.0-31.0); ABG pH (ARTERIAL) 7.425 UNITS (7.350-7.450)
--- NOTE | 2020-02-18 10:49 | IPNPDOC ---
Text Note Date of Service The patient was seen on 02/18/20. NOTE Subjective: Patient is a 74-year-old female with a PMHx of HTN, DM2, Obesity and recent diagnosis of COVID19 (~ 6 days ago). Patient reported that she has presented to the hospital with increased weakness, fatigue and dizziness and worsening shortness of breath. Patient was admitted to the hospitalist service for further evaluation and treatment Patient was transferred to PCU status this morning after she was noted to require higher amounts of oxygen. Patient was seen and examined at the bedside. Currently patient reports that she is short of breath has been coughing. Denies any chest pain or palpitations. Has not experience any vomiting, but does report some nausea. Denies any abdominal pain, diarrhea, or urinary discomfort. Objective: Vitals (See below) General: Sitting up in bed, appears to be coughing significantly, no significant respiratory distress, AAOx3 HEENT: NC, AT CVS: +S1S2 Lungs: Air entry appears to be diminished at left lung field, no appreciable wheezing, some rhonchi can be appreciated, no crackles Abdomen: Soft, nondistended and nontender Extremities: Lower tremors do not reveal any edema, - Calf tenderness Imaging: CXR 1/2: Limited examination. Cannot exclude scattered airspace disease. CXR 02/17: Significant diffuse bilateral infiltrates compatible with COVID-19 pulmonary disease. Assessment and plan: Acute hypoxic respiratory failure - likely 2/2 COVID19 - She presented to the emergency room with complaints of shortness of breath - Currently patient is on high flow nasal cannula oxygen at 8 L - COVID positive (~02/10) - needs to be confirmed - Inflammatory markers are elevated - c/w Dexamethasone (Day #1) - Will start Ceftriaxone and Doxycycline (Day #1); will follow procalcitonin - Will start Incentive spirometry / acapella Chronic Asthma - c/w inhaled therapy as ordered HTN - BP well controlled - Patient has been on Furosemide PRN for comfort as an outpatient - will hold for now - c/w Metoprolol / HCTZ / Losartan with hold parameters NIDDM2 - c/w ISS Anxiety/depression - c/w Nortriptyline RLS - Will resume Ropinirole Obesity - BMI of 41.7 - Complicating medical care GERD - c/w Protonix DVT prophylaxis - c/w Lovenox (weight based prophylaxis dose) Disposition: - Awaiting clinical improvement VS,Craigbone, I+O VS, Fishbone, I+O Laboratory Tests 02/17/20 19:59 02/18/20 07:35 Vital Signs Date Time Temp Pulse Resp B/P (MAP) Pulse Ox O2 Delivery O2 Flow Rate FiO2 02/18/20 08:22 92 144/65 02/18/20 08:00 98.8 22 91 Nasal Cannula 10.0 I&O- Last 24 Hours up to 6 AM 02/18/20 06:00 Intake Total 500 ml Balance 500 ml JOEL PAUL MD Feb 18, 2020 10:49
[2020-02-18] MEDS: rOPINIRole 2MG TAB PO SCH ×2 (14:45→20:07)
--- NOTE | 2020-02-18 16:33 | ECGEPIP ---
[facility] - ED Test Date: 2020-02-17 Pat Name: HOLLY DONALDSON Department: Room: [place] [address] Gender: Female Alligator Trapper: GUIDO : 1945 Requested By: RICHARD SPAIN Order Number: [id number] Reading MD: Hillary Cohn Measurements Intervals [place] Rate: 104 P: 6 MS: 162 QRS: -27 QRSD: 101 T: 36 QT: 329 QTc: 434 Interpretive Statements SINUS TACHYCARDIA BORDERLINE LEFT AXIS DEVIATION ABNORMAL RHYTHM ECG NSTTW abnormalities No prior Electronically Signed on 02-18-2020 16:33:04 EST by Hillary Cohn
[2020-02-18] MEDS: ENOXAPARIN 60MG/0.6ML SYRINGE (J1650 PER 10MG) SC SCH (20:06)
[2020-02-18] MEDS: NORTRIPTYLINE 25 MG CAP PO SCH (20:07)
[2020-02-18] MEDS ORDERED: rOPINIRole 2MG TAB PO SCH (21:00)
[2020-02-18] MEDS: SYMBICORT 160/4.5MCG INHALER 6GM INH SCH (22:45)
[2020-02-19] MEDS: methylPREDNISolone 40MG 1ML VIAL IV SCH ×4 (00:06→20:14)
[2020-02-19] MEDS ORDERED: LORazepam 2 MG/ML VIAL IV ONE (00:45)
--- NOTE | 2020-02-19 00:55 | IPNPDOC ---
Text Note Date of Service The patient was seen on 02/18/20. NOTE Was having increasing oxygen requirement. With 15 L high flow she was only 84% to 86 %. She was mildly wheezy. Moved to ICU and started on Vapotherm. Started remdicivir. Added symbicort and spiriva in place of home inhalors, increased steroids added ASA also. Encouraged to do proning if she could or at least to lay on the sides and changing sides every [address] Hedrick. Patient is Full code. VS,Isela, I+O VS, Isela, I+O Laboratory Tests 02/18/20 07:35 MAGALY CLEMENTS MD Feb 19, 2020 00:55
[2020-02-19] MEDS ORDERED: SODIUM CHLORIDE 0.9% INJ 10 ML SYR IV ONE (01:00)
[2020-02-19] MEDS ORDERED: BENZONATATE 100 MG CAP PO SCH (01:45)
[2020-02-19 02:00] VITALS: BP 153/67
[2020-02-19] MEDS: BENZONATATE 100 MG CAP PO PRN ×2 (02:10→20:14)
[2020-02-19 04:00] VITALS: BP 147/69
[2020-02-19 05:23] LABS: BASO % 0.2 % (0.0-1.0); HEMATOCRIT 36.4 % (36.0-47.0); HEMOGLOBIN 11.2 g/dl (12.0-15.5); LYMPH # 0.4 10^3/uL (1.5-5.0); LYMPH % 7.2 % (24.0-44.0); MEAN CORPUSCULAR HEMOGLOBIN 28.6 pg (27.0-33.0); MEAN CORPUSCULAR HGB CONC 30.8 g/dl (32.0-36.5); MEAN CORPUSCULAR VOLUME 92.9 fl (80.0-96.0); MONO # 0.1 10^3/uL (0.0-0.8); MONO % 2.3 % (0.0-5.0); NEUTROPHILS # 5.4 10^3/uL (1.5-8.5); NEUTROPHILS % 88.8 % (36.0-66.0); PLATELET COUNT, AUTOMATED 229 10^3/uL (150-450); RED BLOOD COUNT 3.92 10^6/uL (4.00-5.40); WHITE BLOOD COUNT 6.1 10^3/uL (4.0-10.0)
[2020-02-19] MEDS: ALBUTEROL 90 MCG/ACT 8GM HFA INHALER INH SCH ×5 (05:42→22:57)
[2020-02-19 05:44] LABS: INR 1.07; PROTHROMBIN TIME 14.1 SECONDS (12.5-14.3)
[2020-02-19 05:45] LABS: PARTIAL THROMBOPLASTIN TIME 51.5 SECONDS (24.2-38.5)
[2020-02-19 05:59] LABS: ALBUMIN 2.3 GM/DL (3.2-5.2); BILIRUBIN,DIRECT 0.1 MG/DL (0.0-0.2); BILIRUBIN,TOTAL 0.3 MG/DL (0.2-1.0); C REACTIVE PROTEIN QUANTITATIV 27.4 MG/DL (0.00-0.30); CALCIUM LEVEL 8.3 MG/DL (8.8-10.2); CREATININE FOR GFR 1.05 MG/DL (0.55-1.30); GLOMERULAR FILTRATION RATE 54.2 (>39); POTASSIUM SERUM 3.9 MEQ/L (3.5-5.1); TOTAL PROTEIN 6.1 GM/DL (6.4-8.2)
[2020-02-19] MEDS: TIOTROPIUM INHALER/CAPSULE (SPIRIVA) INH SCH (07:16)
[2020-02-19] MEDS: SYMBICORT 160/4.5MCG INHALER 6GM INH SCH ×2 (07:17→22:57)
[2020-02-19 08:31] VITALS: BP 164/72
[2020-02-19] MEDS: cefTRIAXone SOD 1 GM in D5W MINI-BAG PLUS 50 ML IV SCH ×2 (08:31→22:57)
[2020-02-19] MEDS: ENOXAPARIN 60MG/0.6ML SYRINGE (J1650 PER 10MG) SC SCH ×2 (08:32→20:15)
[2020-02-19] MEDS: PANTOPRAZOLE 40MG TAB (PROTONIX) PO SCH ×2 (08:32→20:14)
[2020-02-19] MEDS: ROSUVASTATIN 10 MG TAB (CRESTOR) PO SCH (08:32)
[2020-02-19] MEDS: LOSARTAN 50MG TABLET PO SCH (08:33)
[2020-02-19] MEDS: ASPIRIN 81 MG CHEW TABLET PO SCH (08:33)
[2020-02-19] MEDS: rOPINIRole 2MG TAB PO SCH ×2 (08:34→20:14)
[2020-02-19] MEDS: METOPROLOL SUCC *XL* 12.5MG PER 1/2 TAB (TopROL *XL*) PO SCH (08:35)
[2020-02-19] MEDS: hydroCHLOROthiazide 25 MG TAB PO SCH (08:35)
[2020-02-19] MEDS: DOXYCYCLINE HYCLATE 100 MG in D5W MINI-BAG PLUS 100 ML IV SCH ×2 (11:26→20:13)
[2020-02-19] MEDS: FUROSEMIDE 40MG/4ML VIAL (J1940) IV SCH (11:27)
--- NOTE | 2020-02-19 12:22 | IPNPDOC ---
Text Note Date of Service The patient was seen on 02/19/20. NOTE Subjective: Patient is a 74-year-old female with a PMHx of HTN, DM2, Obesity and recent diagnosis of COVID19 (~ 6 days ago). Patient reported that she has presented to the hospital with increased weakness, fatigue and dizziness and worsening shortness of breath. Patient was admitted to the hospitalist service for further evaluation and treatment Patient was transitioned to the ICU yesterday evening. Current issues. He is seen on Vapotherm therapy at 90% FiO2. Patient appears to be comfortable while sitting in room on her phone texting. . She reports that her shortness of breath is relatively stable. Still reports significant cough. Denies any nausea, vomiting, abdominal pain or diarrhea. Denies any urinary discomfort. Objective: Vitals (See below) General: Sitting up in bed, Vapotherm therapy is in place. Patient appears to be comfortable, is awake, alert and oriented 3 HEENT: NC, AT CVS: +S1S2 Lungs: There appears to be fair air entry bilaterally without any evidence of rhonchi, crackles or wheezing Abdomen: Abdomen remains soft without any appreciated tenderness or distention Extremities: No edema of lower extremities, - Calf tenderness Imaging: CXR 1/2: Limited examination. Cannot exclude scattered airspace disease. CXR /3: Significant diffuse bilateral infiltrates compatible with COVID-19 pulmonary disease. Assessment and plan: Acute hypoxic respiratory failure - likely 2/2 COVID19, possibly 2/2 super imposed bacterial pneumonia, possibly 2/2 fluid overload - Currently she is on Vapotherm therapy and 90% FiO2 - COVID19 positive (02/14) - Inflammatory markers are elevated - c/w Remdesivir (Day#2); Corticosteroids adjusted to Solumedrol (40 IV Q8H) - c/w Ceftriaxone and Doxycycline (Day #2); will follow procalcitonin - remains stable - c/w Incentive spirometry / acapella - Pulmonary on consultation; appreciate their input Chronic Asthma - c/w inhaled therapy as ordered; Spriva / Symbicort added HTN - BP slightly elevated - Started on Furosemide 40 IV (02/19/20) - c/w Metoprolol / HCTZ / Losartan with hold parameters NIDDM2 - c/w ISS Anxiety/depression - c/w Nortriptyline RLS - c/w Ropinirole Obesity - BMI of 41.7 - Complicating medical care GERD - c/w Protonix DVT prophylaxis - c/w Lovenox (weight based prophylaxis dose) Disposition: - Awaiting clinical improvement - Increasing oxygen requirement VS,Craigbonroberth, I+O VS, Fishbone, I+O Laboratory Tests 02/19/20 05:11 Vital Signs Date Time Temp Pulse Resp B/P (MAP) Pulse Ox O2 Delivery O2 Flow Rate FiO2 02/19/20 08:35 80 164/72 02/19/20 08:31 97.0 24 93 HVNI-Vapotherm 35.0 90 I&O- Last 24 Hours up to 6 AM 02/19/20 06:00 Intake Total 1680 ml Output Total 600 ml Balance 1080 ml JOEL PAUL MD Feb 19, 2020 12:22
[2020-02-19 12:34] VITALS: BP 141/102
[2020-02-19 20:00] VITALS: BP 145/69
[2020-02-19] MEDS: NORTRIPTYLINE 25 MG CAP PO SCH (20:14)
--- NOTE | 2020-02-19 22:34 | CR ---
CONSULTATION DATE: 02/19/2020 REASON FOR CONSULTATION: Dyspnea and shortness of breath with movement. CHIEF COMPLAINT: Shortness of breath. HISTORY OF PRESENT ILLNESS: Ms. Patino is a 74-year-old female with the past medical history of hypertension, hyperlipidemia, gastroesophageal reflux disease and diabetes who presented with complaints of worsening shortness of breath and fatigue as well as hypoxia. The patient states she was exposed to her son over [place], who was visiting and had cold-like symptoms and was then found to be positive for Covid-19. She was quarantining at home when she started having symptoms initially of headaches as well as cough but no reported fever. The patient tested positive around February 13. The patient then noted worsening shortness of breath as well as dizziness and fatigue and on her home pulse oximeter was noted to be hypoxic, prompting her presentation to the Emergency Department. The patient does have a history of asthma. She is on Trelegy for a maintenance inhaler which she was compliant with. She does have Albuterol nebulized bronchodilator and a rescue inhaler more which she was using prior to her admission here. The patient was also prescribed Doxycycline as an outpatient which she was taking. She denied noticing any significant wheezing, however, and had a cough that was productive of only scant mucous which she states was somewhat brownish at times as well. The patient denies a previous history of exacerbations for her asthma. She denies a prior history of obstructive sleep apnea although her Motor[employer] Sergeant, Dr. Gan, had performed a nocturnal oximetry study as an outpatient which was suggestive sleep disorder breathing, and she has a new patient referral in place with our nurse practitioner for evaluation for possible sleep apnea. The patient does report a history of lower extremity chronically, although does not feel it has been increased recently as she states she was elevating her legs at home. She denied noticing any chest pain. She denies any calf pain although she does report some myalgias. Here in the E.D. the patient was noted to be significantly hypoxemic requiring nasal cannula oxygen supplementation initially at 5 liters per minute. The patient was started on Dexamethasone 6 mg IV daily. She was noted over the past 2 days to have worsening hypoxia requiring increasing amounts of nasal cannula oxygen supplementation. She was initially transferred to the PCU as she was requiring high flow nasal cannula. Her repeat x-ray yesterday had shown worsening bilateral diffuse infiltrates compared to admission, left greater than right and she was also started on Remdesivir. The patient was also started on Aspirin. Overnight she was requiring Vapotherm as on 15 liters high flow nasal cannula she was in the high 80's. She was therefore transferred to the ICU. This morning she continues to report significant dyspnea and shortness of breath, particularly with movement. On the Vapotherm at 35 liters a minute and 90% FiO2, the patient has been saturating in the 90's. PAST MEDICAL HISTORY: The patient's past medical history is significant for: 1. Hypertension. 2. Asthma. 3. Gastroesophageal reflux disease. 4. Hyperlipidemia. 5. Depression/anxiety. 6. Osteoarthritis. 7. Diabetes. 8. Allergic rhinitis. PAST SURGICAL HISTORY: The patient's past surgical history is significant for: 1. Tubal ligation. 2. Hysterectomy. 3. Gallbladder removed. 4. Breast reduction surgery. SOCIAL HISTORY: She denies any nicotine use. No alcohol use or illicit drug use. FAMILY HISTORY: The patient's family history is reviewed and noncontributory. MEDICATIONS: 1. Trelegy. 2. Albuterol p.r.n. 3. Nexium. 4. Hydrochlorothiazide. 5. Losartan. 6. Metoprolol. 7. Nasonex. 8. Multivitamin. 9. Nortriptyline. 10. Ropinirole. 11. Rosuvastatin. 12. Furosemide 40 mg p.r.n. ALLERGIES: 1. Sulfa. 2. Levofloxacin. 3. Propoxyphene. PHYSICAL EXAMINATION: VITAL SIGNS: Temperature 97.4, pulse 76, respirations 31, blood pressure 147/69, 02 sat 93% on 90% FiO2. INTAKE AND OUTPUT: In 1.6 liters, out 600 mL, net positive one liter. GENERAL APPEARANCE: The patient is an obese female, is sitting in bed and appears to be in mild respiratory distress. She is speaking in short sentences and is using some accessory muscles for respiration. HEENT: Normocephalic and atraumatic. Pupils are reactive to light bilaterally. Moist mucous membranes noted. NECK: Supple. Trachea is midline. Unable to clearly evaluate any JVD. There is no palpable cervical adenopathy. CARDIAC: Regular rate and rhythm. Normal S1, S2. Unable to clearly appreciate any murmurs. PULMONARY: Diminished breath sounds bilaterally with crackles, particularly at the left base and mild rhonchi. No wheezing noted. ABDOMEN: Obese, soft, nontender, nondistended. Unable to appreciate any organomegaly. EXTREMITIES: No significant lower extremity edema bilaterally. There is no calf tenderness. LABORATORY DATA: WBC 6.1, hemoglobin 11.2, platelet count 229. Chemistries: Sodium is 140, potassium 3.9, chloride is 108, bicarbonate is 26, BUN 19, creatinine is 1.05, glucose is 146, lactic acid was 1.8, calcium is 8.3, ferratin 296, AST 45, ALT 20, alkaline phosphatase 80, LDH is 437, CPK 404. Troponin is negative. BNP increased to 937, albumin is 2.3. Procalcitonin is 0.10. INR is 1.07, fibrinogen 776. D-dimer is 2,000. Arterial blood gases yesterday: PH 7.425, pco2 of 38.4, pO2 of 83.7. IMAGING DATA: Chest x-ray yesterday shows increased patchy opacities, particularly in the left lung with air bronchograms noted in the left upper lobe as well as consolidation in the left lower lobe. ASSESSMENT AND PLAN: Ms. Patino is a 74-year-old female with a past medical history of obesity, diabetes, hypertension, hyperlipidemia, asthma, arthritis, who presented with complaints of worsening shortness of breath and dyspnea as well as hypoxia - The patient was diagnosed Covid-19 positive approximately 5-6 days ago after an exposure around [place] time. She was being treated with Doxycycline as an outpatient but noted to have worsening symptoms, particularly the hypoxia which she noted on her home pulse oximeter, prompting her presentation to the E.D. The patient was admitted and started on nasal cannula oxygen supplementation initially. She was given Dexamethasone, however had worsening hypoxia and worsening findings on imaging with patchy opacities, particularly with denser consolidation on the left with some air bronchograms. She was started on Remdesivir yesterday and was then transferred to the ICU, as she was requiring Vapotherm given her severe hypoxia. 1. Acute hypoxic respiratory failure in the setting of Covid-19 pneumonia with possible superimposed bacterial pneumonia as well as a component of pulmonary edema. - The patient did have fever on presentation and her chest x-ray does show a more focal opacity, particularly on that left side. She is on Ceftriaxone and Doxycycline which we will continue for antibiotics, but we will increase Ceftriaxone to 2 gram daily dosing. - We will continue with Remdesivir as well as steroids. She was on Doxycycline initially, however with her history of asthma, she was increased to Solu-Medrol which we can continue at 40 mg q. 8 hours with tapering. - We will continue with her home inhalers as well as Albuterol rescue bronchodilator. - Continue with Vapotherm and titrate to maintain O2 sat above 90% - The patient was also instructed on awake pronation given her hypoxia. - The patient also takes Lasix for home medication periodically. Her BNP has been increasing and so we will also give a dose of IV Lasix to see if there is a component of up pulmonary edema contributing to her hypoxia. - We will follow up results of her atypical pneumonia testing. DVT PROPHYLAXIS on weight based Lovenox. The patient was also started on Aspirin 81 mg daily. CODE STATUS: Full code. Total critical care time spent not including any procedures approximately one hour and 40 minutes. MTDD
[2020-02-20] VITALS: BP 155/67
[2020-02-20] MEDS: REMDESIVIR 100 MG in NS 250 ML IV SCH ×3 (00:01)
[2020-02-20] MEDS: ACETAMINOPHEN TAB 650MG DOSE (2X325MG) PO PRN ×2 (00:01→20:51)
[2020-02-20] MEDS: SODIUM CHLORIDE 0.9% INJ 10 ML SYR IV SCH (00:01)
[2020-02-20] MEDS: BENZONATATE 100 MG CAP PO PRN ×2 (01:37→20:48)
[2020-02-20 04:00] VITALS: BP 146/67
[2020-02-20 04:49] LABS: BASO % 0.1 % (0.0-1.0); HEMATOCRIT 36.8 % (36.0-47.0); HEMOGLOBIN 11.9 g/dl (12.0-15.5); LYMPH # 0.7 10^3/uL (1.5-5.0); LYMPH % 8.6 % (24.0-44.0); MEAN CORPUSCULAR HEMOGLOBIN 29.8 pg (27.0-33.0); MEAN CORPUSCULAR HGB CONC 32.3 g/dl (32.0-36.5); MONO # 0.4 10^3/uL (0.0-0.8); MONO % 4.2 % (0.0-5.0); NEUTROPHILS # 7.2 10^3/uL (1.5-8.5); NEUTROPHILS % 85.7 % (36.0-66.0); PLATELET COUNT, AUTOMATED 279 10^3/uL (150-450); WHITE BLOOD COUNT 8.4 10^3/uL (4.0-10.0)
[2020-02-20 05:11] LABS: INR 1.12; PROTHROMBIN TIME 14.6 SECONDS (12.5-14.3)
[2020-02-20 05:12] LABS: PARTIAL THROMBOPLASTIN TIME 39.7 SECONDS (24.2-38.5)
[2020-02-20 05:14] LABS: D-DIMER QUANT 1845.78 ng/ml (<500)
[2020-02-20 05:20] LABS: ALBUMIN 2.4 GM/DL (3.2-5.2); BILIRUBIN,DIRECT 0.1 MG/DL (0.0-0.2); BILIRUBIN,TOTAL 0.3 MG/DL (0.2-1.0); C REACTIVE PROTEIN QUANTITATIV 14.4 MG/DL (0.00-0.30); CALCIUM LEVEL 8.6 MG/DL (8.8-10.2); CREATININE FOR GFR 1.37 MG/DL (0.55-1.30); GLOMERULAR FILTRATION RATE 39.9 (>39); MAGNESIUM LEVEL 1.8 MG/DL (1.8-2.4); POTASSIUM SERUM 3.4 MEQ/L (3.5-5.1); TOTAL PROTEIN 6.1 GM/DL (6.4-8.2)
[2020-02-20] MEDS: methylPREDNISolone 40MG 1ML VIAL IV SCH ×3 (05:33→20:44)
[2020-02-20] MEDS: ALBUTEROL 90 MCG/ACT 8GM HFA INHALER INH SCH ×6 (05:35→20:00)
[2020-02-20 08:00] VITALS: BP 150/70
[2020-02-20] MEDS: FUROSEMIDE 40MG/4ML VIAL (J1940) IV SCH (08:17)
[2020-02-20] MEDS: DOXYCYCLINE HYCLATE 100 MG in D5W MINI-BAG PLUS 100 ML IV SCH ×2 (08:17→20:48)
[2020-02-20] MEDS: ENOXAPARIN 60MG/0.6ML SYRINGE (J1650 PER 10MG) SC SCH ×2 (08:17→20:45)
[2020-02-20] MEDS: ROSUVASTATIN 10 MG TAB (CRESTOR) PO SCH (08:18)
[2020-02-20] MEDS: LOSARTAN 50MG TABLET PO SCH (08:18)
[2020-02-20] MEDS: METOPROLOL SUCC *XL* 12.5MG PER 1/2 TAB (TopROL *XL*) PO SCH (08:18)
[2020-02-20] MEDS: hydroCHLOROthiazide 25 MG TAB PO SCH (08:18)
[2020-02-20] MEDS: PANTOPRAZOLE 40MG TAB (PROTONIX) PO SCH ×2 (08:19→20:44)
[2020-02-20] MEDS: rOPINIRole 2MG TAB PO SCH ×2 (08:19→20:45)
[2020-02-20] MEDS: ASPIRIN 81 MG CHEW TABLET PO SCH (08:19)
[2020-02-20] MEDS: SYMBICORT 160/4.5MCG INHALER 6GM INH SCH ×2 (08:26→20:31)
[2020-02-20] MEDS: TIOTROPIUM INHALER/CAPSULE (SPIRIVA) INH SCH (08:26)
[2020-02-20] MEDS: cefTRIAXone SOD 1 GM in D5W MINI-BAG PLUS 50 ML IV SCH ×2 (10:38→22:13)
[2020-02-20] MEDS ORDERED: POTASSIUM CHLORIDE 10 MEQ SR TABLET PO ONE (11:15)
[2020-02-20 12:00] VITALS: BP 117/60
[2020-02-20] MEDS: guaiFENesin ER 600 MG TAB PO SCH ×2 (12:04→20:44)
[2020-02-20] MEDS ORDERED: SODIUM CHLORIDE NASAL 0.65% SPRAY BTL (OCEAN) PRN (13:30)
--- NOTE | 2020-02-20 14:49 | CCN ---
CRITICAL CARE NOTE DATE: 02/20/2020 SUBJECTIVE: The patient was seen and examined this morning during bedside rounds. The patient has been continued on Vapotherm. She does desaturate with minimal activity and so was increased to 40 liters per minute and 100% FiO2. When the patient is prone, her oxygenation does improve. She is complaining of some dryness in her eyes from blowing from the high flow cannula as well as some nasal congestion. The patient continues to have some cough which has been fairly productive of thick mucous. The patient has been afebrile overnight. She denies any abdominal pain. No nausea or vomiting. OBJECTIVE: PHYSICAL EXAMINATION: VITAL SIGNS: Temperature 97.1, pulse 80, respirations 39, blood pressure 150/70, 02 sat 90% on 40 liters at 100% FiO2. INTAKE AND OUTPUT: In is 1.2 liters, out 1.7, net negative 515 mL. GENERAL APPEARANCE: The patient is an obese female, is lying in bed in prone position. She is tachypneic and is speaking in short sentences. HEENT: Normocephalic and atraumatic. Pupils reactive to light bilaterally. NECK: Difficult to examine as the patient is prone. CARDIAC: Regular rate and rhythm. Unable to examine clearly as she is prone position. PULMONARY: Diminished breath sounds bilaterally with crackles, more on the left base although appeared improved breath sounds today. There is no wheezing noted and no rhonchi. ABDOMEN: Obese. Unable to clearly examine as she is prone. EXTREMITIES: No significant lower extremity edema bilaterally. LABORATORY STUDIES: WBC 8.4, hemoglobin 11.9, platelet count 279. Chemistries: Sodium is 140, potassium 3.4, chloride is 105, bicarbonate is 51, BUN 36, creatinine is 1.37, glucose is 156, calcium is 8.6, magnesium is 1.8. Ferratin 314, AST 53, ALT 31, BNP 908. Albumin is 2.4. D-dimer is 1845, INR is 1.12. ASSESSMENT AND PLAN: The patient is a 74-year-old female a past medical history of obesity, diabetes, hypertension, hyperlipidemia, asthma and arthritis who presented with shortness of breath and dyspnea as well as hypoxemic respiratory failure in the setting of COVID-19 pneumonia with a possible superimposed bacterial pneumonia. The patient's imaging initially does show patchy opacities, particularly with a denser consolidation on the left side with some air bronchograms. She was being treated as an outpatient with Doxycycline but given her worsening hypoxia, she was started on broader antibiotic coverage with Ceftriaxone in addition to the Doxycycline which was increased to the 2 gram daily dosage. - Continue with Remdesivir to complete a 10-day course given her severe hypoxia. - The patient was initially on Dexamethasone, however given her history of asthma, she was increased to Solu-Medrol 40 mg q. 8 hours which we can continue with tapering in the next day or two. - We will continue the patient on Vapotherm and we will continue wean down FiO2 as tolerated to maintain O2 sat above 90%. The patient was encouraged to awake prone more often than she was yesterday as her sats do improve with pronation. - The patient was given IV Lasix yesterday as her BNP was elevated, and there was a concern for possible pulmonary edema contributing to her hypoxia. Her creatinine increased today, however and so her Lasix was discontinued, although she did receive the a.m. dose. will monitor renal function - We will replete her electrolytes, particularly her potassium and magnesium. - We will continue with bronchodilators as well as starting Mucinex for mucous clearance. - We will also try the patient with saline nasal sprays as needed for any nasal congestion. DVT PROPHYLAXIS on weight based prophylaxis with Lovenox. Her D-dimer has been trending down. She is also on Aspirin 81 mg daily. CODE STATUS: Full code. Total critical time spent not including procedures approximately 35 minutes. MTDD
[2020-02-20 16:00] VITALS: BP 118/56
--- NOTE | 2020-02-20 19:42 | IPNPDOC ---
Text Note Date of Service The patient was seen on 02/20/20. NOTE Subjective: -Continues to be severely hypoxemic requiring Vapotherm therapy at 100% FiO2. -Patient appears to be comfortable while sitting up however with a significant cough with stable SOB. -Denies any nausea, vomiting, abdominal pain or diarrhea. Objective: Vitals: See below General: Sitting up in bed, Vapotherm in place, NAD HEENT: NC, AT CVS: RRR, +S1S2 Lungs: Diminished, L base scattered wet crackles Abdomen: Abdomen remains soft without any appreciated tenderness or distention. Normoactive sounds Extremities: No edema of lower extremities, no WWP Neuro: Nonfocal examination throughout Psych: AOx3 Labs: reviewed na 140 K3.4 Mag 1.8 Ferritin 314 proBNP 908 CRP 14.4 Ddimer 1845 Imaging: CXR 1/2: Limited examination. Cannot exclude scattered airspace disease. CXR 1/3: Significant diffuse bilateral infiltrates compatible with COVID-19 pulmonary disease. Assessment and plan: Acute hypoxic respiratory failure - likely 2/2 COVID19, possibly 2/2 superimposed bacterial pneumonia, possibly 2/2 fluid overload - Currently she is on Vapotherm therapy on 100% FiO2 - COVID19 positive (02/14) - Inflammatory markers are elevated - c/w Remdesivir (Day#3); Corticosteroids adjusted to Solumedrol (40 IV Q8H) - c/w Ceftriaxone and Doxycycline (Day #3); will follow procalcitonin - remains stable - c/w Incentive spirometry / acapella - Pulmonary on consultation; appreciate their input - s/p some lasix IV, held in setting of rising Cr - guaifenesin Chronic Asthma - c/w inhaled therapy as ordered; Spriva / Symbicort added HTN - BP slightly elevated - Started on Furosemide 40 IV (02/19/20) - c/w Metoprolol / HCTZ / Losartan with hold parameters NIDDM2 - c/w ISS Anxiety/depression - c/w Nortriptyline RLS - c/w Ropinirole Obesity - BMI of 41.7 - Complicating medical care GERD - c/w Protonix DVT prophylaxis - c/w Lovenox (weight based prophylaxis dose) Disposition: - Awaiting clinical improvement - Increasing oxygen requirement VS,Fishbone, I+O VS, Fishbone, I+O Laboratory Tests 02/20/20 04:43 Vital Signs Date Time Temp Pulse Resp B/P (MAP) Pulse Ox O2 Delivery O2 Flow Rate FiO2 02/20/20 08:18 80 150/70 02/20/20 08:00 97.3 30 89 HVNI-Vapotherm 40.0 100 I&O- Last 24 Hours up to 6 AM 02/20/20 05:59 Intake Total 1480 ml Output Total 1725 ml Balance -245 ml CUATE MANCUSO MD Feb 20, 2020 09:59
[2020-02-20 20:00] VITALS: BP 158/70
[2020-02-20] MEDS: NORTRIPTYLINE 25 MG CAP PO SCH (20:45)
[2020-02-20] MEDS ORDERED: NS 500 ML IV ONE (21:15)
[2020-02-21] VITALS (7 sets, daily range): BP systolic 118–164; BP diastolic 56–72
[2020-02-21] MEDS: SODIUM CHLORIDE 0.9% INJ 10 ML SYR IV SCH (00:12)
[2020-02-21] MEDS: ALBUTEROL 90 MCG/ACT 8GM HFA INHALER INH SCH ×6 (04:00→20:35)
[2020-02-21 05:18] LABS: BASO % 0.1 % (0.0-1.0); HEMATOCRIT 35.7 % (36.0-47.0); HEMOGLOBIN 11.6 g/dl (12.0-15.5); LYMPH # 0.9 10^3/uL (1.5-5.0); LYMPH % 9.3 % (24.0-44.0); MEAN CORPUSCULAR HEMOGLOBIN 29.8 pg (27.0-33.0); MEAN CORPUSCULAR HGB CONC 32.5 g/dl (32.0-36.5); MEAN CORPUSCULAR VOLUME 91.8 fl (80.0-96.0); MONO # 0.4 10^3/uL (0.0-0.8); MONO % 4.3 % (0.0-5.0); NEUTROPHILS # 7.8 10^3/uL (1.5-8.5); NEUTROPHILS % 84.2 % (36.0-66.0); PLATELET COUNT, AUTOMATED 288 10^3/uL (150-450); RED BLOOD COUNT 3.89 10^6/uL (4.00-5.40); WHITE BLOOD COUNT 9.2 10^3/uL (4.0-10.0)
[2020-02-21] MEDS: methylPREDNISolone 40MG 1ML VIAL IV SCH ×2 (05:25→13:28)
[2020-02-21 05:52] LABS: INR 1.13; PROTHROMBIN TIME 14.8 SECONDS (12.5-14.3)
[2020-02-21 05:53] LABS: PARTIAL THROMBOPLASTIN TIME 34.5 SECONDS (24.2-38.5)
[2020-02-21 05:54] LABS: ALBUMIN 2.4 GM/DL (3.2-5.2); BILIRUBIN,DIRECT 0.1 MG/DL (0.0-0.2); BILIRUBIN,TOTAL 0.3 MG/DL (0.2-1.0); C REACTIVE PROTEIN QUANTITATIV 8.58 MG/DL (0.00-0.30); CALCIUM LEVEL 8.7 MG/DL (8.8-10.2); CREATININE FOR GFR 1.41 MG/DL (0.55-1.30); GLOMERULAR FILTRATION RATE 38.6 (>39); MAGNESIUM LEVEL 1.5 MG/DL (1.8-2.4); POTASSIUM SERUM 3.5 MEQ/L (3.5-5.1); TOTAL PROTEIN 5.9 GM/DL (6.4-8.2)
[2020-02-21 05:56] LABS: D-DIMER QUANT 1602.85 ng/ml (<500)
[2020-02-21] MEDS: SYMBICORT 160/4.5MCG INHALER 6GM INH SCH ×2 (08:00→20:35)
[2020-02-21] MEDS: ENOXAPARIN 60MG/0.6ML SYRINGE (J1650 PER 10MG) SC SCH ×2 (08:50→20:56)
[2020-02-21] MEDS: DOXYCYCLINE HYCLATE 100 MG in D5W MINI-BAG PLUS 100 ML IV SCH (08:50)
[2020-02-21] MEDS: ASPIRIN 81 MG CHEW TABLET PO SCH (08:50)
[2020-02-21] MEDS: guaiFENesin ER 600 MG TAB PO SCH ×2 (08:51→20:55)
[2020-02-21] MEDS: METOPROLOL SUCC *XL* 12.5MG PER 1/2 TAB (TopROL *XL*) PO SCH (08:51)
[2020-02-21] MEDS: PANTOPRAZOLE 40MG TAB (PROTONIX) PO SCH ×2 (08:51→20:55)
[2020-02-21] MEDS: LOSARTAN 50MG TABLET PO SCH (08:51)
[2020-02-21] MEDS: hydroCHLOROthiazide 25 MG TAB PO SCH (08:52)
[2020-02-21] MEDS: rOPINIRole 2MG TAB PO SCH ×3 (08:52→20:55)
[2020-02-21] MEDS: ROSUVASTATIN 10 MG TAB (CRESTOR) PO SCH (08:52)
[2020-02-21] MEDS: cefTRIAXone SOD 1 GM in D5W MINI-BAG PLUS 50 ML IV SCH ×2 (11:02→21:00)
[2020-02-21] MEDS: TIOTROPIUM INHALER/CAPSULE (SPIRIVA) INH SCH (11:31)
--- NOTE | 2020-02-21 16:36 | IPNPDOC ---
Text Note Date of Service The patient was seen on 02/21/20. NOTE Subjective: -Continues to be hypoxemic requiring Vapotherm therapy but improving now on 75% FiO2 on 25L/min -Has a persistent cough, no reported chest pain except with incessant coughing, nausea, vomiting, abdominal pain or diarrhea. Objective: Vitals: See below General: Vapotherm in place, NAD HEENT: NC, AT CVS: RRR, +S1S2 Lungs: Stably diminished, L base scattered wet crackles Abdomen: Abdomen remains soft without any appreciated tenderness or distention. Normoactive sounds Extremities: No edema of lower extremities, no WWP Neuro: Nonfocal examination throughout Psych: AOx3 Labs: reviewed Cr 1.41 CRP 18.58, downtrending Ddimer 1602, downtrending Imaging: CXR 1/2: Limited examination. Cannot exclude scattered airspace disease. CXR 1/3: Significant diffuse bilateral infiltrates compatible with COVID-19 pulmonary disease. Assessment and plan: Acute hypoxic respiratory failure - likely 2/2 COVID19, possibly 2/2 superimposed bacterial pneumonia, possibly 2/2 fluid overload - Currently she is on Vapotherm therapy on 75% FiO2 and 25L - COVID19 positive (02/14) - Inflammatory markers are elevated - c/w Remdesivir (Day#4); Corticosteroids adjusted to Solumedrol (40 IV Q8H) by pulm - s/p Ceftriaxone and Doxycycline for 3d. Procal was persistently negative, so abx were stopped - c/w Incentive spirometry / acapella - Pulmonary on consultation; appreciate their input - s/p some lasix IV, held in setting of rising Cr - guaifenesin Chronic Asthma - c/w inhaled therapy as ordered; Spriva / Symbicort HTN - c/w Metoprolol (increased to 25mg QD from 12.5 for sinus tachycardia)/ HCTZ / Losartan with hold parameters NIDDM2 - c/w ISS Anxiety/depression - c/w Nortriptyline RLS - c/w Ropinirole Obesity - BMI of 41.7 - Complicating medical care GERD - c/w Protonix DVT prophylaxis - c/w Lovenox (weight based prophylaxis dose) RUSS: s/p diuretics and later fluids -will monitor for now Disposition: - Awaiting clinical improvement - Now with improving oxygen requirement VS,Fishbone, I+O VS, Fishbone, I+O Laboratory Tests 02/21/20 05:01 Vital Signs Date Time Temp Pulse Resp B/P (MAP) Pulse Ox O2 Delivery O2 Flow Rate FiO2 02/21/20 09:24 89 HVNI-Vapotherm 25.0 75 02/21/20 08:51 76 164/72 02/21/20 04:00 97.2 25 I&O- Last 24 Hours up to 6 AM 02/21/20 06:00 Intake Total 1730 ml Output Total 1600 ml Balance 130 ml CUATE MANCUSO MD Feb 21, 2020 10:03
[2020-02-21 17:12] LABS: MYCOPLASMA PNEUMONIAE IgG 414 U/mL (0-99); MYCOPLASMA PNEUMONIAE IgM <770 U/mL (0-769)
[2020-02-21] MEDS: NORTRIPTYLINE 25 MG CAP PO SCH (20:55)
[2020-02-21] MEDS: BENZONATATE 100 MG CAP PO PRN (21:06)
[2020-02-21] MEDS: REMDESIVIR 100 MG in NS 250 ML IV SCH (23:10)
[2020-02-22] VITALS (7 sets, daily range): BP systolic 111–140; BP diastolic 52–71
[2020-02-22] MEDS: SODIUM CHLORIDE 0.9% INJ 10 ML SYR IV SCH (00:06)
[2020-02-22] MEDS: methylPREDNISolone 40MG 1ML VIAL IV SCH ×2 (01:40→15:00)
[2020-02-22] MEDS: ALBUTEROL 90 MCG/ACT 8GM HFA INHALER INH SCH ×7 (04:32→23:57)
[2020-02-22 05:11] LABS: BASO % 0.2 % (0.0-1.0); HEMATOCRIT 34.9 % (36.0-47.0); LYMPH # 0.9 10^3/uL (1.5-5.0); LYMPH % 8.4 % (24.0-44.0); MEAN CORPUSCULAR HEMOGLOBIN 28.7 pg (27.0-33.0); MEAN CORPUSCULAR HGB CONC 31.5 g/dl (32.0-36.5); MEAN CORPUSCULAR VOLUME 91.1 fl (80.0-96.0); MONO # 0.7 10^3/uL (0.0-0.8); MONO % 6.8 % (0.0-5.0); NEUTROPHILS # 8.6 10^3/uL (1.5-8.5); NEUTROPHILS % 81.8 % (36.0-66.0); PLATELET COUNT, AUTOMATED 309 10^3/uL (150-450); RED BLOOD COUNT 3.83 10^6/uL (4.00-5.40); WHITE BLOOD COUNT 10.5 10^3/uL (4.0-10.0)
[2020-02-22 05:33] LABS: INR 1.12; PROTHROMBIN TIME 14.7 SECONDS (12.5-14.3)
[2020-02-22 05:36] LABS: PARTIAL THROMBOPLASTIN TIME 33.9 SECONDS (24.2-38.5)
[2020-02-22 05:39] LABS: ALBUMIN 2.4 GM/DL (3.2-5.2); BILIRUBIN,DIRECT 0.1 MG/DL (0.0-0.2); BILIRUBIN,TOTAL 0.3 MG/DL (0.2-1.0); C REACTIVE PROTEIN QUANTITATIV 4.98 MG/DL (0.00-0.30); CREATININE FOR GFR 1.14 MG/DL (0.55-1.30); GLOMERULAR FILTRATION RATE 49.3 (>39); MAGNESIUM LEVEL 1.4 MG/DL (1.8-2.4); POTASSIUM SERUM 3.3 MEQ/L (3.5-5.1); TOTAL PROTEIN 5.5 GM/DL (6.4-8.2)
[2020-02-22 05:40] LABS: D-DIMER QUANT 1548.99 ng/ml (<500)
[2020-02-22] MEDS ORDERED: MAGNESIUM OXIDE 400 MG TAB (MAG-OX) PO ONE (08:30)
[2020-02-22] MEDS ORDERED: POTASSIUM CHLORIDE 10 MEQ SR TABLET PO ONE (08:30)
[2020-02-22] MEDS: TIOTROPIUM INHALER/CAPSULE (SPIRIVA) INH SCH (09:01)
[2020-02-22] MEDS: SYMBICORT 160/4.5MCG INHALER 6GM INH SCH ×2 (09:01→21:18)
[2020-02-22] MEDS: ENOXAPARIN 60MG/0.6ML SYRINGE (J1650 PER 10MG) SC SCH ×2 (09:32→21:52)
[2020-02-22] MEDS: BENZONATATE 100 MG CAP PO PRN ×2 (09:32→21:52)
[2020-02-22] MEDS: ROSUVASTATIN 10 MG TAB (CRESTOR) PO SCH (09:33)
[2020-02-22] MEDS: ASPIRIN 81 MG CHEW TABLET PO SCH (09:33)
[2020-02-22] MEDS: hydroCHLOROthiazide 25 MG TAB PO SCH (09:35)
[2020-02-22] MEDS: LOSARTAN 50MG TABLET PO SCH (09:35)
[2020-02-22] MEDS: guaiFENesin ER 600 MG TAB PO SCH ×2 (09:35→21:52)
[2020-02-22] MEDS: PANTOPRAZOLE 40MG TAB (PROTONIX) PO SCH ×2 (09:36→21:52)
[2020-02-22] MEDS: METOPROLOL SUCC *XL* 25MG TAB (TopROL *XL*) PO SCH (09:36)
[2020-02-22] MEDS: rOPINIRole 2MG TAB PO SCH ×2 (09:36→21:52)
[2020-02-22 13:07] LABS: BODY FLUID CULTURE Not indicated. (.); LEGIONELLA ANTIGEN URINE Negative (Negative); ORGANISM ID Not indicated. (.); SPECIMEN SOURCE Urine (.); URINE STREP PNEUMONIAE ANTIGEN Negative (Negative)
--- NOTE | 2020-02-22 13:11 | IPNPDOC ---
Text Note Date of Service The patient was seen on 02/22/20. NOTE Subjective: -Stably on 75% FiO2 on 25L/min vapotherm -Has a persistent cough, no reported chest pain except with incessant coughing, nausea, vomiting, abdominal pain or diarrhea. Objective: Vitals: See below General: Vapotherm in place, NAD HEENT: NC, AT CVS: RRR, +S1S2 Lungs: Continues to be diminished Abdomen: Abdomen remains soft without any appreciated tenderness or distention. Normoactive sounds Extremities: No edema of lower extremities, no WWP Neuro: Nonfocal examination throughout Psych: AOx3 Labs: reviewed WBC 10.4 Hgb 11 platelets 309 Na 141 K 3.3 (repleted) Mag 1.4 (repleted) Cr 1.14 Ddimer 1548.99, downtrending Imaging: CXR 1/2: Limited examination. Cannot exclude scattered airspace disease. CXR 1/3: Significant diffuse bilateral infiltrates compatible with COVID-19 pulmonary disease. Assessment and plan: Acute hypoxic respiratory failure - likely 2/2 COVID19, possibly 2/2 superimposed bacterial pneumonia, possibly 2/2 fluid overload - Currently she is on Vapotherm therapy on 75% FiO2 and 25L - COVID19 positive (02/14) - Inflammatory markers are elevated - c/w Remdesivir (Day#5); Corticosteroids adjusted to Solumedrol (40 IV Q12H) by pulm - s/p Ceftriaxone and Doxycycline. Procal was persistently negative, so abx were stopped - c/w Incentive spirometry / acapella - Pulmonary on consultation; appreciate their input - s/p some lasix IV, held in setting of rising Cr. - guaifenesin Chronic Asthma - c/w inhaled therapy as ordered; Spriva / Symbicort HTN - c/w Metoprolol, increased to 25mg QD from 12.5 for sinus tachycardia/ HCTZ / Losartan with hold parameters NIDDM2 - c/w ISS Anxiety/depression - c/w Nortriptyline RLS - c/w Ropinirole Obesity - BMI of 41.7 - Complicating medical care GERD - c/w Protonix DVT prophylaxis - c/w Lovenox (weight based prophylaxis dose) RUSS: s/p diuretics and later fluids -will monitor for now Disposition: - Awaiting clinical improvement - Now with slowly improving oxygen requirement VSIsela I+O VS, Fishbone, I+O Laboratory Tests 02/22/20 04:56 Vital Signs Date Time Temp Pulse Resp B/P (MAP) Pulse Ox O2 Delivery O2 Flow Rate FiO2 02/22/20 05:15 65 28 94 HVNI-Vapotherm 25.0 75 02/22/20 04:00 97.5 124/58 (80) I&O- Last 24 Hours up to 6 AM 02/22/20 06:00 Intake Total 1730 ml Output Total 1275 ml Balance 455 ml CUATE MANCUSO MD Feb 22, 2020 08:31
[2020-02-22] MEDS: NORTRIPTYLINE 25 MG CAP PO SCH (21:52)
[2020-02-23] VITALS (7 sets, daily range): BP systolic 127–157; BP diastolic 58–66; O2SAT 90
[2020-02-23] MEDS: REMDESIVIR 100 MG in NS 250 ML IV SCH (00:12)
[2020-02-23] MEDS: SODIUM CHLORIDE 0.9% INJ 10 ML SYR IV SCH (00:17)
[2020-02-23] MEDS: methylPREDNISolone 40MG 1ML VIAL IV SCH ×2 (02:11→15:22)
[2020-02-23] MEDS: BENZONATATE 100 MG CAP PO PRN ×4 (02:11→22:05)
[2020-02-23] MEDS: ALBUTEROL 90 MCG/ACT 8GM HFA INHALER INH SCH ×5 (04:44→20:00)
[2020-02-23 05:41] LABS: BASO % 0.2 % (0.0-1.0); HEMATOCRIT 36.1 % (36.0-47.0); HEMOGLOBIN 11.6 g/dl (12.0-15.5); LYMPH # 0.8 10^3/uL (1.5-5.0); MEAN CORPUSCULAR HEMOGLOBIN 29.5 pg (27.0-33.0); MEAN CORPUSCULAR HGB CONC 32.1 g/dl (32.0-36.5); MEAN CORPUSCULAR VOLUME 91.9 fl (80.0-96.0); MONO # 0.7 10^3/uL (0.0-0.8); MONO % 6.1 % (0.0-5.0); NEUTROPHILS # 9.5 10^3/uL (1.5-8.5); NEUTROPHILS % 82.9 % (36.0-66.0); PLATELET COUNT, AUTOMATED 317 10^3/uL (150-450); RED BLOOD COUNT 3.93 10^6/uL (4.00-5.40); WHITE BLOOD COUNT 11.5 10^3/uL (4.0-10.0)
[2020-02-23 06:09] LABS: ALBUMIN 2.4 GM/DL (3.2-5.2); BILIRUBIN,DIRECT 0.1 MG/DL (0.0-0.2); BILIRUBIN,TOTAL 0.4 MG/DL (0.2-1.0); C REACTIVE PROTEIN QUANTITATIV 3.85 MG/DL (0.00-0.30); CALCIUM LEVEL 8.3 MG/DL (8.8-10.2); CREATININE FOR GFR 1.13 MG/DL (0.55-1.30); GLOMERULAR FILTRATION RATE 49.8 (>39); MAGNESIUM LEVEL 1.6 MG/DL (1.8-2.4); POTASSIUM SERUM 3.6 MEQ/L (3.5-5.1); TOTAL PROTEIN 5.9 GM/DL (6.4-8.2)
[2020-02-23 06:10] LABS: INR 1.11; PROTHROMBIN TIME 14.5 SECONDS (12.5-14.3)
[2020-02-23 06:11] LABS: PARTIAL THROMBOPLASTIN TIME 32.8 SECONDS (24.2-38.5)
[2020-02-23 06:14] LABS: D-DIMER QUANT 1453.22 ng/ml (<500)
[2020-02-23 06:23] LABS: HEMOGLOBIN A1c 6.5 %
[2020-02-23] MEDS ORDERED: MAGNESIUM *L&D* 4GM/100ML BAG (40MG/ML) IV ONE (08:45)
[2020-02-23] MEDS: TIOTROPIUM INHALER/CAPSULE (SPIRIVA) INH SCH (08:45)
[2020-02-23] MEDS: SYMBICORT 160/4.5MCG INHALER 6GM INH SCH ×2 (08:46→20:39)
[2020-02-23] MEDS: ASPIRIN 81 MG CHEW TABLET PO SCH (09:19)
[2020-02-23] MEDS: rOPINIRole 2MG TAB PO SCH ×2 (09:19→20:27)
[2020-02-23] MEDS: guaiFENesin ER 600 MG TAB PO SCH ×2 (09:20→20:27)
[2020-02-23] MEDS: METOPROLOL SUCC *XL* 25MG TAB (TopROL *XL*) PO SCH (09:20)
[2020-02-23] MEDS: hydroCHLOROthiazide 25 MG TAB PO SCH (09:20)
[2020-02-23] MEDS: LOSARTAN 50MG TABLET PO SCH (09:20)
[2020-02-23] MEDS: ENOXAPARIN 60MG/0.6ML SYRINGE (J1650 PER 10MG) SC SCH ×2 (09:21→20:27)
[2020-02-23] MEDS: ROSUVASTATIN 10 MG TAB (CRESTOR) PO SCH (09:21)
[2020-02-23] MEDS: MAG SULF 1GM/100ML (MAG RUN) X 2 DOSES (2GM TOTAL) IV SCH ×4 (09:21→11:00)
[2020-02-23] MEDS: PANTOPRAZOLE 40MG TAB (PROTONIX) PO SCH ×2 (09:21→20:27)
--- NOTE | 2020-02-23 15:07 | IPNPDOC ---
Text Note Date of Service The patient was seen on 02/23/20. NOTE Subjective: -Doing ok, slowly improving hypoxeia FiO2 now 60% vapotherm -Has a persistent incessant cough, no reported chest pain, nausea, vomiting, abdominal pain or diarrhea. -Actively awake proning when I went in to see her. Objective: Vitals: See below General: Vapotherm in place, NAD HEENT: NC, AT CVS: RRR, +S1S2 Lungs: Air movement is improving, has bibasilar crackles Abdomen: Abdomen remains soft without any appreciated tenderness or distention. Normoactive sounds Extremities: No edema of lower extremities, no WWP Neuro: Nonfocal examination throughout Psych: AOx3 Labs: reviewed. Imaging: CXR 02/16: Limited examination. Cannot exclude scattered airspace disease. CXR 02/17: Significant diffuse bilateral infiltrates compatible with COVID-19 pulmonary disease. Assessment and plan: Acute hypoxic respiratory failure - likely 2/2 COVID19, possibly 2/2 fluid overl oad - Currently she is on Vapotherm therapy on 60% FiO2. slowly improving - COVID19 positive (02/14) - Inflammatory markers are elevated but now improving - c/w Remdesivir (Day#5, last day); Corticosteroids adjusted to Solumedrol (40 IV Q12H) by pulm to continue for now - s/p Ceftriaxone and Doxycycline. Procal was persistently negative, so abx were stopped - c/w Incentive spirometry / acapella - Pulmonary on consultation; appreciate their input - s/p some lasix IV, held in setting of rising Cr. - guaifenesin and tessalon perls Chronic Asthma - c/w inhaled therapy as ordered; Spriva / Symbicort HTN - c/w Metoprolol, increased to 25mg QD/ HCTZ / Losartan with hold parameters NIDDM2 - c/w ISS Anxiety/depression - c/w Nortriptyline RLS - c/w Ropinirole Obesity - BMI of 41.7 - Complicating medical care GERD - c/w Protonix DVT prophylaxis - c/w Lovenox (weight based prophylaxis dose) RUSS: s/p diuretics and later fluids -will monitor for now Disposition: - Awaiting clinical improvement - Now with slowly improving oxygen requirement VS,Fishbone, I+O VS, Fishbone, I+O Laboratory Tests 02/23/20 05:13 Vital Signs Date Time Temp Pulse Resp B/P (MAP) Pulse Ox O2 Delivery O2 Flow Rate FiO2 02/23/20 06:00 96 HVNI-Vapotherm 20.0 70 02/23/20 05:02 71 24 02/23/20 04:00 97.3 157/66 (96) I&O- Last 24 Hours up to 6 AM 02/23/20 05:59 Intake Total 1475 ml Output Total 725 ml Balance 750 ml CUATE MANCUSO MD Feb 23, 2020 08:49
[2020-02-23] MEDS: NORTRIPTYLINE 25 MG CAP PO SCH (20:27)
[2020-02-23] MEDS: ACETAMINOPHEN TAB 650MG DOSE (2X325MG) PO PRN (22:05)
[2020-02-24] VITALS (7 sets, daily range): BP systolic 113–162; BP diastolic 56–72; O2SAT 95
[2020-02-24] MEDS: ALBUTEROL 90 MCG/ACT 8GM HFA INHALER INH SCH ×5 (00:25→16:51)
[2020-02-24] MEDS: methylPREDNISolone 40MG 1ML VIAL IV SCH ×2 (01:06→14:01)
[2020-02-24] MEDS: BENZONATATE 100 MG CAP PO PRN ×4 (03:44→21:03)
[2020-02-24 05:41] LABS: HEMATOCRIT 36.5 % (36.0-47.0); HEMOGLOBIN 11.8 g/dl (12.0-15.5); MEAN CORPUSCULAR HEMOGLOBIN 29.6 pg (27.0-33.0); MEAN CORPUSCULAR HGB CONC 32.3 g/dl (32.0-36.5); MEAN CORPUSCULAR VOLUME 91.7 fl (80.0-96.0); PLATELET COUNT, AUTOMATED 301 10^3/uL (150-450); RED BLOOD COUNT 3.98 10^6/uL (4.00-5.40); WHITE BLOOD COUNT 11.6 10^3/uL (4.0-10.0)
[2020-02-24 06:11] LABS: CALCIUM LEVEL 8.6 MG/DL (8.8-10.2); CREATININE FOR GFR 1.12 MG/DL (0.55-1.30); GLOMERULAR FILTRATION RATE 50.4 (>39); POTASSIUM SERUM 3.8 MEQ/L (3.5-5.1)
[2020-02-24] MEDS: TIOTROPIUM INHALER/CAPSULE (SPIRIVA) INH SCH (07:48)
[2020-02-24] MEDS: SYMBICORT 160/4.5MCG INHALER 6GM INH SCH ×2 (07:48→20:00)
[2020-02-24] MEDS: rOPINIRole 2MG TAB PO SCH ×2 (09:15→20:58)
[2020-02-24] MEDS: ENOXAPARIN 60MG/0.6ML SYRINGE (J1650 PER 10MG) SC SCH ×2 (09:15→20:58)
[2020-02-24] MEDS: ASPIRIN 81 MG CHEW TABLET PO SCH (09:16)
[2020-02-24] MEDS: LOSARTAN 50MG TABLET PO SCH (09:16)
[2020-02-24] MEDS: guaiFENesin ER 600 MG TAB PO SCH ×2 (09:17→20:58)
[2020-02-24] MEDS: METOPROLOL SUCC *XL* 25MG TAB (TopROL *XL*) PO SCH (09:17)
[2020-02-24] MEDS: ROSUVASTATIN 10 MG TAB (CRESTOR) PO SCH (09:17)
[2020-02-24] MEDS: hydroCHLOROthiazide 25 MG TAB PO SCH (09:17)
[2020-02-24] MEDS: PANTOPRAZOLE 40MG TAB (PROTONIX) PO SCH ×2 (09:17→20:58)
[2020-02-24] MEDS ORDERED: TOPR25TA PO (14:48)
[2020-02-24] MEDS ORDERED: BENZ-18 PO (14:48)
[2020-02-24] MEDS ORDERED: MUCI600T31 PO (14:48)
[2020-02-24] MEDS ORDERED: PRED10TA2 PO (14:48)
--- NOTE | 2020-02-24 14:49 | IPNPDOC ---
Text Note Date of Service The patient was seen on 02/24/20. NOTE Subjective: -Doing much better, with markedly improved hypoxia now on 3L HFNC -Persistent cough, well managed with tessalon perls and mucinex, no reported chest pain, nausea, vomiting, abdominal pain or diarrhea. Objective: Vitals: See below General: Vapotherm in place, NAD HEENT: NC, AT CVS: RRR, +S1S2 Lungs: Air movement is improving, has bibasilar crackles Abdomen: Abdomen remains soft without any appreciated tenderness or distention. Normoactive sounds Extremities: No edema of lower extremities, no WWP Neuro: Nonfocal examination throughout Psych: AOx3 Labs: reviewed. Imaging: CXR 02/16: Limited examination. Cannot exclude scattered airspace disease. CXR 02/17: Significant diffuse bilateral infiltrates compatible with COVID-19 pulmonary disease. Assessment and plan: Acute hypoxic respiratory failure - likely 2/2 COVID19, possibly 2/2 fluid overload - Currently she is on 3L HFNC - COVID19 positive (02/14) - Inflammatory markers are elevated but now improving - s/p 5d of Remdesivir; Corticosteroids adjusted to Solumedrol (40 IV Q12H) by pulm, will reduce to solumedrol 40 daily now - s/p Ceftriaxone and Doxycycline. Procal was persistently negative, so abx were stopped - c/w Incentive spirometry / acapella - Pulmonary on consultation; appreciate their input - s/p some lasix IV, held in setting of rising Cr. - guaifenesin and tessalon perls Chronic Asthma - c/w inhaled therapy as ordered; Spriva / Symbicort HTN - c/w Metoprolol, increased to 25mg QD/ HCTZ / Losartan with hold parameters NIDDM2 - c/w ISS Anxiety/depression - c/w Nortriptyline RLS - c/w Ropinirole Obesity - BMI of 41.7 - Complicating medical care GERD - c/w Protonix DVT prophylaxis - c/w Lovenox (weight based prophylaxis dose) RUSS: s/p diuretics and later fluids -will monitor for now Disposition: - Now downgrading to medsurg/tele - With improving oxygen requirement VS,Fishbone, I+O VS, Fishbone, I+O Laboratory Tests 02/24/20 05:03 Vital Signs Date Time Temp Pulse Resp B/P (MAP) Pulse Ox O2 Delivery O2 Flow Rate FiO2 02/24/20 06:00 92 High Flow Cannula 3.0 02/24/20 04:00 96.7 68 22 150/65 (93) 02/23/20 15:00 50 I&O- Last 24 Hours up to 6 AM 02/24/20 06:00 Intake Total 1560 ml Output Total 1000 ml Balance 560 ml CUATE MANCUSO MD Feb 24, 2020 08:43
[2020-02-24] MEDS: NORTRIPTYLINE 25 MG CAP PO SCH (20:58)
[2020-02-24] MEDS: ACETAMINOPHEN TAB 650MG DOSE (2X325MG) PO PRN (21:04)
[2020-02-25] MEDS: methylPREDNISolone 40MG 1ML VIAL IV SCH ×2 (01:44→15:17)
[2020-02-25 02:00] VITALS: BP 164/68
[2020-02-25] MEDS: ALBUTEROL 90 MCG/ACT 8GM HFA INHALER INH SCH ×5 (03:57→15:56)
--- NOTE | 2020-02-25 08:14 | DS.PDOC ---
Discharge Summary General Date of Admission Feb 17, 2020 at 23:25 Date of Discharge 02/25/2020 Attending Physician: CUATE MANCUSO MD Discharge Summary PROCEDURES PERFORMED DURING STAY: None ADMITTING DIAGNOSES: 1. Covid-19 PNA DISCHARGE DIAGNOSES: Covid-19 PNA. Acute hypoxemic respiratory failure. Hypertension. Asthma. Gastroesophageal reflux disease. Hyperlipidemia. Depression/anxiety. Osteoarthritis. Diabetes. Allergic rhinitis. COMPLICATIONS/CHIEF COMPLAINT: Covid19,Hypoxia. HISTORY OF PRESENT ILLNESS: 74-year-old W with the past medical history of hypertension, hyperlipidemia, gastroesophageal reflux, disease and diabetes who presented with complaints of worsening shortness of breath and fatigue after being exposed to her son over [place], who was visiting and had cold-like symptoms and was then found to be positive for Covid- 19. She was quarantining at home when she started having symptoms initially of headaches as well as cough but no reported fever. The patient tested positive around February 13. The patient then noted worsening shortness of breath as well as dizziness and fatigue and on her home pulse oximeter was noted to be hypoxic, prompting her presentation to the Emergency Department. The patient does have a history of asthma. HOSPITAL COURSE: In the E.D. the patient was noted to be significantly hypoxemic requiring nasal cannula oxygen supplementation initially at 5 liters per minute. The patient was started on Dexamethasone 6 mg IV daily. She was noted over the past 2 days to have worsening hypoxia requiring increasing amounts of nasal cannula oxygen supplementation. She was initially transferred to the PCU as she was requiring high flow nasal cannula and repeat x-ray showed worsening bilateral diffuse infiltrates compared to admission, left greater than right and she was also started on Remdesivir. The patient was also started on Aspirin. She escalated to requiring Vapotherm and was transferred to the ICU and at some point required 100% FiO2. She was given the full 3d of dexamethasone and 5d of remdesevir, as well as 3d of empiric CAP coverage despite repeated negative procalcitonin. Pulmonology was consulted and given the persistent severe hypoxia, she was started on methylprednisone at 40 TID with awake proning, some intermitted diure sis as well with eventual improvement in her hypoxia and is now on 3L NC. She is now being discharged home with supplemental oxygen, currently requiring 3L at rest, with plan for close PCP follow up within 7d at least by telemedicine with a prednisone taper as well as supportive tessalon perls and mucinex and continuation of her mdis. We are also advising that she continues self isolation precautions until resolution of her symptoms for at least 10d from the time of discharge. DISCHARGE MEDICATIONS: Please see below. ALLERGIES: Please see below. PHYSICAL EXAMINATION ON DISCHARGE: VITAL SIGNS: Please see below. General: Nasal canula in place in 3L NC, NAD HEENT: NC, AT CVS: RRR, +S1S2 Lungs: Air movement is much better, has bibasilar crackles, no wheezing, no rhonchi Abdomen: Abdomen remains soft without any appreciated tenderness or distention. Normoactive sounds Extremities: No edema of lower extremities, no WWP Neuro: Nonfocal examination throughout Psych: AOx3 LABORATORY DATA: Please see below. IMAGING: CXR 02/16: Limited examination. Cannot exclude scattered airspace disease. CXR 02/17: Significant diffuse bilateral infiltrates compatible with COVID-19 pulmonary disease. PROGNOSIS: Good ACTIVITY: As tolerated DIET: Consistent carb DISCHARGE PLAN: Home with supplemental oxygen, prednisone taper, tessalon perls, mucinex and close PCP follow up. DISPOSITION: Home DISCHARGE INSTRUCTIONS: 1. Home with supplemental oxygen, prednisone taper, tessalon perls, mucinex and close PCP follow up. ITEMS TO FOLLOWUP ON ON OUTPATIENT: 1. Covid-19 PNA resolution 2. Hypoxemia respiratory failure resolution DISCHARGE CONDITION: Stable TIME SPENT ON DISCHARGE: 54 minutes. Vital Signs/I&Os Vital Signs Date Time Temp Pulse Resp B/P (MAP) Pulse Ox O2 Delivery O2 Flow Rate FiO2 02/25/20 02:00 96.3 64 18 164/68 (100) 97 Nasal Cannula 3.0 02/23/20 15:00 50 I&O- Last 24 Hours up to 6 AM 02/25/20 06:00 Intake Total 1150 ml Balance 1150 ml Microbiology Microbiology 02/17/20 Blood Culture - Final, Complete NO GROWTH AFTER 5 DAYS 02/17/20 Blood Culture - Final, Complete NO GROWTH AFTER 5 DAYS Discharge Medications Scheduled Albuterol Sulfate (Proventil Hfa) 6.7 Gm Hfa.aer.ad, 2 PUFF INH QID for wheezing, (Reported) Conjugated Estrogens (Premarin) 0.625 Mg Tab, 0.625 MG PO 3XW, (Reported) Desloratadine (Clarinex) 5 Mg Tab, 5 MG PO DAILY, (Reported) Doxycycline Hyclate (Doxycycline Hyclate) 100 Mg Tablet, 100 MG PO BID, (Reported) STARTED 02/04/20 X 10 DAYS Esomeprazole Magnesium (Nexium) 40 Mg Cap, 40 MG PO BID, (Reported) Fluticasone/Umeclidin/Vilanter (Trelegy Ellipta 100-62.5-25) 1 Each Blst.w.dev, 1 PUFF INH DAILY, (Reported) Guaifenesin (Mucinex) 600 Mg Tab.er.12h, 600 MG PO BID Hydrochlorothiazide (Hydrochlorothiazide) 25 Mg Tablet, 25 MG PO DAILY, (Reported) Losartan Potassium (Losartan Potassium) 100 Mg Tablet, 100 MG PO DAILY, (Reported) Metoprolol Succinate (Toprol Xl) 25 Mg Tab.er.24h, 25 MG PO DAILY Mometasone Furoate Monohydrate (Nasonex) 17 Gm [place].pump, 1 SPRAY NA DAILY, (Reported) Multivitamin (Multi-Vitamin Daily) 1 Each Tablet, 1 TAB PO DAILY, (Reported) Nortriptyline HCl (Nortriptyline HCl) 50 Mg Capsule, 50 MG PO QHS, (Reported) MAY TAKE 1-2 CAPS QHS Prednisone (Prednisone) 10 Mg Tablet, 1 TAB PO DAILY 4 tabs daily for 4 days, then 3 tabs daily for 4 days, then 2 tabs daily for 4 days, then 1 tab daily for 4 days Ropinirole HCl (Requip Xl) 2 Mg Tab.er.24h, 2 MG PO QHS, (Reported) MAY TAKE 1-2 TABS QHS Rosuvastatin Calcium (Crestor) 10 Mg Tablet, 10 MG PO DAILY, (Reported) [Areds] , 1 TAB PO DAILY, (Reported) Scheduled PRN Acetaminophen (Acetaminophen) 500 Mg Tablet, 1,000 MG PO Q6H PRN for PAIN / FEVER, (Reported) Albuterol Sulf (Albuterol Sulfate) 2.5 Mg/3 Ml Nebu, 2.5 MG INH Q4HP PRN for BRONCHOSPASM, (Reported) Benzonatate (Benzonatate) 100 Mg Capsule, 100 MG PO Q4HP PRN for COUGH Betamethasone Dipropionate (Betamethasone Dipropionate) 0.05% Cream..g., 1 APLCT TOP BID PRN for DRY SKIN, (Reported) ELBOWS Furosemide (Lasix) 40 Mg Tab, 40 MG PO DAILYPRN PRN for FOR COMFORT, (Reported) Allergies Coded Allergies: Sulfa (Sulfonamide Antibiotics) (Verified Allergy, Severe, mouth swelling, 08/03/19) levofloxacin (Verified Adverse Reaction, Mild, muscle aches, 08/03/19) propoxyphene (Verified Adverse Reaction, Mild, nausea, 08/03/19) CUATE MANCUSO MD Feb 25, 2020 08:14
[2020-02-25] MEDS: ASPIRIN 81 MG CHEW TABLET PO SCH (08:49)
[2020-02-25] MEDS: guaiFENesin ER 600 MG TAB PO SCH (08:49)
[2020-02-25] MEDS: PANTOPRAZOLE 40MG TAB (PROTONIX) PO SCH (08:49)
[2020-02-25] MEDS: ROSUVASTATIN 10 MG TAB (CRESTOR) PO SCH (08:49)
[2020-02-25] MEDS: ENOXAPARIN 60MG/0.6ML SYRINGE (J1650 PER 10MG) SC SCH (08:50)
[2020-02-25] MEDS: rOPINIRole 2MG TAB PO SCH (08:50)
[2020-02-25 08:51] VITALS: BP 165/74
[2020-02-25] MEDS: LOSARTAN 50MG TABLET PO SCH (08:51)
[2020-02-25] MEDS: METOPROLOL SUCC *XL* 25MG TAB (TopROL *XL*) PO SCH (08:51)
[2020-02-25] MEDS: hydroCHLOROthiazide 25 MG TAB PO SCH (08:51)
[2020-02-25] MEDS: TIOTROPIUM INHALER/CAPSULE (SPIRIVA) INH SCH (08:57)
[2020-02-25] MEDS: BENZONATATE 100 MG CAP PO PRN (08:57)
[2020-02-25] MEDS: SYMBICORT 160/4.5MCG INHALER 6GM INH SCH (08:58)
== END 2020-02-25 17:00 | disposition home or self-care (01) | DRG 137 ==
LOC: M ED 19:08 → M ED INP 23:25 → ENRESERV 23:59 → M 4MAIN 02-18 01:35 → M ICU 02-18 23:19 → M 4MAIN 02-24 15:47
PROVIDERS: ADMIT Family Medicine; ATTEND Internal Medicine
DX: U07.1 COVID-19 (principal); J96.01 Acute respiratory failure with hypoxia; J12.89 Other viral pneumonia; Z68.41 Body mass index [BMI] 40.0-44.9, adult; E11.9 Type 2 diabetes mellitus without complications; J45.909 Unspecified asthma, uncomplicated; E66.9 Obesity, unspecified; I10 Essential (primary) hypertension; K21.9 Gastro-esophageal reflux disease without esophagitis; E78.5 Hyperlipidemia, unspecified; M19.90 Unspecified osteoarthritis, unspecified site; Z79.899 Other long term (current) drug therapy; Z88.2 Allergy status to sulfonamides; Z88.8 Allergy status to other drugs, medicaments and biological substances; F41.9 Anxiety disorder, unspecified; F32.9 Major depressive disorder, single episode, unspecified; G25.81 Restless legs syndrome

== ENCOUNTER → 2020-03-14 | Outpatient (REF) | payer BC, MEDICARE ==
[~2020-03-14] MED LIST changes: +ACET-683 PO; +AREDS PO; +BENZ-18 PO; +BETA0.0543 TOP; +DOXY100T PO; +MUCI600T31 PO; +NORT50CA PO; +PRED10TA2 PO
[2020-03-15 11:22] LABS: HEMATOCRIT 34.6 % (36.0-47.0); HEMOGLOBIN 10.9 g/dl (12.0-15.5); MEAN CORPUSCULAR HEMOGLOBIN 30.4 pg (27.0-33.0); MEAN CORPUSCULAR HGB CONC 31.5 g/dl (32.0-36.5); MEAN CORPUSCULAR VOLUME 96.4 fl (80.0-96.0); PLATELET COUNT, AUTOMATED 106 10^3/uL (150-450); RED BLOOD COUNT 3.59 10^6/uL (4.00-5.40); WHITE BLOOD COUNT 9.5 10^3/uL (4.0-10.0)
[2020-03-15 11:48] LABS: CREATININE FOR GFR 1.03 MG/DL (0.55-1.30); GLOMERULAR FILTRATION RATE 55.5 (>39); POTASSIUM SERUM 4.1 MEQ/L (3.5-5.1)
== END ==
LOC: M SFHCCLAY 14:10
PROVIDERS: ATTEND Family Medicine
DX: U07.1 COVID-19 (principal); I10 Essential (primary) hypertension; E11.9 Type 2 diabetes mellitus without complications

== ENCOUNTER → 2020-04-04 | Outpatient (REF) | payer BC, MEDICARE ==
[~2020-04-04] MED LIST changes: +HYDR-3490 PO; -HYDR25TAB PO
[2020-04-04 16:31] LABS: CALCIUM LEVEL 9.3 MG/DL (8.8-10.2); CREATININE FOR GFR 1.6 MG/DL (0.55-1.30); GLOMERULAR FILTRATION RATE 33.4 (>39); POTASSIUM SERUM 3.5 MEQ/L (3.5-5.1)
== END ==
LOC: M SFHCCLAY 11:48
PROVIDERS: ATTEND Family Medicine
DX: U07.1 COVID-19 (principal); I10 Essential (primary) hypertension

== ENCOUNTER → 2020-04-09 | Outpatient (CLI) | payer BC ==
--- NOTE | 2020-04-10 15:42 | SLEEPCENT ---
DATE: 04/09/2020 ORDERED BY: Dr. Hedrick Nocturnal polysomnography was performed for evaluation of sleep physiology in this patient with a significant history of diabetes and hypertension. There was 7 hours and 46 minutes of data reviewed. There was 305 minutes of sleep identified. Sleep latency was mildly prolonged at 47.5 minutes. REM latency was normal at 91 minutes. Sleep architecture shows fragmentation with periods of wake around 2 a.m. There were 3 REM cycles appreciated. Overall sleep efficiency was 66.1%. Electrocardiogram showed what appeared to be a sinus rhythm with an average heart rate of 67 beats per minute. Rate ranged 50-80. EEG showed normal waveforms for wake and sleep. There were 136 respiratory events identified of 10 seconds in duration or greater for an apnea-hypopnea index of 26.8. The events were primarily obstructive, not exclusive to sleep stage, more frequent but not exclusive in the supine posture. Arousals from respiratory events occurred 3.5 times per hour, and oxygen desaturations were seen into the 70s. There was some scattered limb activity, but limb movement arousals were few. Snoring was noted over the entire study. IMPRESSION: Obstructive sleep apnea syndrome (G47.33). Apnea-hypopnea index 26.8. RECOMMENDATION: The patient should be encouraged to return to the sleep disorder center for in-laboratory pressure titration. In the interim, alcohol and sedative avoidance should be practiced and caution exercised during the operation of motor vehicles.
== END ==
LOC: M SLEEP 20:00
PROVIDERS: ATTEND Internal Medicine Pulmonary Disease
DX: G47.30 Sleep apnea, unspecified (principal)

== ENCOUNTER → 2020-06-07 | Outpatient (REF) | payer BC, MEDICARE ==
[2020-06-07 12:18] LABS: CALCIUM LEVEL 9.6 MG/DL (8.8-10.2); CREATININE FOR GFR 1.68 MG/DL (0.55-1.30); GLOMERULAR FILTRATION RATE 31.5 (>39); POTASSIUM SERUM 3.5 MEQ/L (3.5-5.1)
== END ==
LOC: M SFHCCLAY 07:39
PROVIDERS: ATTEND Family Medicine
DX: I10 Essential (primary) hypertension (principal)

== ENCOUNTER → 2020-06-25 | Outpatient (CLI) | payer BC, MEDICARE ==
--- NOTE | 2020-06-26 06:27 | REP ---
INDICATION: HX OF COVID 19 COMPARISON: None TECHNIQUE: Axial noncontrast images from the thoracic inlet to the upper abdomen with coronal and sagittal reformations. This CT examination was performed using the following dose reduction techniques: Automated exposure control, adjustment of mA and/or kv according to the patient's size, and use of iterative reconstruction technique. FINDINGS: The lung fischer moderate subtle scattered areas of interstitial thickening and ground-glass haziness likely representing sequelae of prior infectious process (history of COVID-19 disease). No acute consolidation. No pleural effusion. No pneumothorax. No significant nodule or mass lesion. Tracheobronchial tree is patent. Mediastinum demonstrates atherosclerotic changes to the thoracic aorta and coronary arteries without aortic aneurysm or cardiomegaly. No pericardial effusion. No axillary, hilar or mediastinal adenopathy. Small hiatal hernia at the gastroesophageal junction identified. Surrounding musculoskeletal structures without acute osseous abnormality. Limited upper abdomen demonstrates normal bilateral adrenal glands and evidence for prior cholecystectomy. IMPRESSION: 1. Subtle scattered changes likely representing sequelae from resolves infectious process. 2. No acute mediastinal or pleuroparenchymal process appreciated. <Electronically signed by Artem Ramon > 06/26/20 [id number]
== END ==
LOC: M RAD 13:20
PROVIDERS: ATTEND Internal Medicine Pulmonary Disease
DX: U07.1 COVID-19 (principal)

== ENCOUNTER → 2020-08-16 | Outpatient (REF) | payer BC, MEDICARE ==
[2020-08-16 11:37] LABS: HEMATOCRIT 37.4 % (36.0-47.0); MEAN CORPUSCULAR HEMOGLOBIN 29.9 pg (27.0-33.0); MEAN CORPUSCULAR HGB CONC 32.1 g/dl (32.0-36.5); MEAN CORPUSCULAR VOLUME 93.3 fl (80.0-96.0); PLATELET COUNT, AUTOMATED 259 10^3/uL (150-450); RED BLOOD COUNT 4.01 10^6/uL (4.00-5.40)
[2020-08-16 11:56] LABS: HEMOGLOBIN A1c 6.5 %
[2020-08-16 12:10] LABS: ALBUMIN 3.4 GM/DL (3.2-5.2); BILIRUBIN,TOTAL 0.4 MG/DL (0.2-1.0); CALCIUM LEVEL 9.2 MG/DL (8.8-10.2); CHOLESTEROL RISK RATIO 2.144 (<5); CREATININE FOR GFR 1.18 MG/DL (0.55-1.30); FREE T4 1.09 NG/DL (0.76-1.46); GLOMERULAR FILTRATION RATE 47.4 (>39); POTASSIUM SERUM 4.1 MEQ/L (3.5-5.1); THYROID STIMULATING HORMONE 4.19 uIU/ML (0.358-3.740); TOTAL PROTEIN 6.5 GM/DL (6.4-8.2)
[2020-08-16 16:45] LABS: CREATININE, URINE 92.4 MG/DL; MALB URINE SIEMENS 6.2 MG/L; MAU/CREAT RATIO 6.7 MCG/MG (0.0-30.0)
== END ==
LOC: M SFHCCLAY 08:42
PROVIDERS: ATTEND Family Medicine
DX: M19.90 Unspecified osteoarthritis, unspecified site (principal); I10 Essential (primary) hypertension; E11.9 Type 2 diabetes mellitus without complications; R79.89 Other specified abnormal findings of blood chemistry

== ENCOUNTER → 2021-02-19 | Outpatient (REF) | payer BC, MEDICARE ==
[2021-02-19 16:16] LABS: HEMATOCRIT 33.8 % (36.0-47.0); HEMOGLOBIN 10.8 g/dl (12.0-15.5); MEAN CORPUSCULAR HEMOGLOBIN 29.7 pg (27.0-33.0); MEAN CORPUSCULAR VOLUME 92.9 fl (80.0-96.0); PLATELET COUNT, AUTOMATED 228 10^3/uL (150-450); RED BLOOD COUNT 3.64 10^6/uL (4.00-5.40); WHITE BLOOD COUNT 6.4 10^3/uL (4.0-10.0)
[2021-02-19 16:39] LABS: ALBUMIN 3.4 GM/DL (3.2-5.2); ALT/SGPT 25 U/L (12-78); BILIRUBIN,TOTAL 0.5 MG/DL (0.2-1.0); BLOOD UREA NITROGEN 25 MG/DL (7-18); CALCIUM LEVEL 9.5 MG/DL (8.8-10.2); CARBON DIOXIDE LEVEL 28 MEQ/L (21-32); CHLORIDE LEVEL 105 MEQ/L (98-107); CREATININE FOR GFR 1.17 MG/DL (0.55-1.30); GLOMERULAR FILTRATION RATE 47.7 (>39); GLUCOSE, FASTING 106 MG/DL (70-100); RHEUMATOID FACTOR QUANT < 10.0 IU/ML (<15.0); SODIUM LEVEL 140 MEQ/L (136-145); TOTAL PROTEIN 6.5 GM/DL (6.4-8.2)
[2021-02-19 19:32] LABS: ERYTHROCYTE SEDIMENTATION RATE 40 mm/hr (0-30); HEMOGLOBIN A1c 6.1 %
== END ==
LOC: M SFHCCLAY 11:20
PROVIDERS: ATTEND Family Medicine
DX: I10 Essential (primary) hypertension (principal); M19.90 Unspecified osteoarthritis, unspecified site; E11.9 Type 2 diabetes mellitus without complications; I45.0 Right fascicular block; R53.82 Chronic fatigue, unspecified

== ENCOUNTER → 2021-02-26 | Outpatient (REF) | payer MEDICARE, BC ==
[~2021-02-26] MED LIST changes: +LOSA100T45 PO; -LOSA100T50 PO
[2021-02-26 17:09] LABS: APPEARANCE, URINE CLEAR (CLEAR); BACTERIA, URINE AUTO NEGATIVE (NEGATIVE); BILIRUBIN, URINE AUTO NEGATIVE (NEGATIVE); BLOOD, URINE BLOOD NEGATIVE (NEGATIVE); COLOR, URINE YELLOW (YELLOW); GLUCOSE, URINE (UA) AUTO 3+ mg/dL (NEGATIVE); KETONE, URINE AUTO NEGATIVE (NEGATIVE); LEUKOCYTE ESTERASE, URINE AUTO NEGATIVE (NEGATIVE); NITRITE, URINE AUTO NEGATIVE (NEGATIVE); PROTEIN, URINE AUTO NEGATIVE (NEGATIVE); RBC, URINE AUTO 0 /HPF (0-3); SPECIFIC GRAVITY URINE AUTO 1.017 (1.002-1.035); SQUAMOUS EPITHELIAL CELL UR AU 2 /HPF (0-6); UROBILINOGEN, URINE AUTO 0.2 mg/dL (0.0-2.0); WBC, URINE AUTO 1 /HPF (0-3)
[2021-02-26 17:48] LABS: MALB URINE SIEMENS < 5.0 MG/L; MAU/CREAT RATIO 4.5 MCG/MG (0.0-30.0)
== END ==
LOC: M SFHCCLAY 15:37
PROVIDERS: ATTEND Family Medicine
DX: M19.90 Unspecified osteoarthritis, unspecified site (principal); I10 Essential (primary) hypertension; E11.9 Type 2 diabetes mellitus without complications; I45.0 Right fascicular block; R53.82 Chronic fatigue, unspecified

== ENCOUNTER → 2021-02-27 | Outpatient (REF) | payer BC, MEDICARE ==
[~2021-02-27] MED LIST changes: -MOME50SP; +NASO50SP3
== END ==
LOC: M SFHCCLAY 17:48
PROVIDERS: ATTEND Family Medicine
DX: D64.9 Anemia, unspecified (principal)

== ENCOUNTER → 2021-06-02 | Outpatient (REF) | payer MEDICARE ==
[2021-06-02 17:14] LABS: CALCIUM LEVEL 9.6 MG/DL (8.8-10.2); CHOLESTEROL RISK RATIO 2.12 (<5); CREATININE FOR GFR 1.6 MG/DL (0.55-1.30); GLOMERULAR FILTRATION RATE 33.3 (>39); POTASSIUM SERUM 3.4 MEQ/L (3.5-5.1)
== END ==
LOC: M LABDRAWC 15:37
PROVIDERS: ATTEND Internal Medicine Cardiovascular Disease
DX: R06.02 Shortness of breath (principal); E78.2 Mixed hyperlipidemia

== ENCOUNTER → 2021-08-26 | Outpatient (REF) | payer MEDICARE ==
[~2021-08-26] MED LIST changes: +ALBU2.5V10 INH; -ALBU83IN INH; -CLAR5TAB PO; +DESL5TAB28 PO
[2021-08-26 15:48] LABS: HEMATOCRIT 37.3 % (36.0-47.0); HEMOGLOBIN 11.7 g/dl (12.0-15.5); MEAN CORPUSCULAR HGB CONC 31.4 g/dl (32.0-36.5); MEAN CORPUSCULAR VOLUME 92.3 fl (80.0-96.0); PLATELET COUNT, AUTOMATED 267 10^3/uL (150-450); RED BLOOD COUNT 4.04 10^6/uL (4.00-5.40)
[2021-08-26 16:08] LABS: ERYTHROCYTE SEDIMENTATION RATE 57 mm/hr (0-30)
[2021-08-26 18:29] LABS: ALBUMIN 3.5 GM/DL (3.2-5.2); BILIRUBIN,TOTAL 0.7 MG/DL (0.2-1.0); CALCIUM LEVEL 9.4 MG/DL (8.8-10.2); CHOLESTEROL RISK RATIO 2.126 (<5); CREATININE FOR GFR 1.55 MG/DL (0.55-1.30); GLOMERULAR FILTRATION RATE 34.5 (>39); POTASSIUM SERUM 4.3 MEQ/L (3.5-5.1); TOTAL PROTEIN 6.6 GM/DL (6.4-8.2)
[2021-08-27 00:06] LABS: HEMOGLOBIN A1c 6.4 %
== END ==
LOC: M SFHCCLAY 10:56
PROVIDERS: ATTEND Family Medicine
DX: I10 Essential (primary) hypertension (principal); M19.90 Unspecified osteoarthritis, unspecified site; E11.9 Type 2 diabetes mellitus without complications; I45.0 Right fascicular block; R53.82 Chronic fatigue, unspecified

== ENCOUNTER → 2021-09-02 | Outpatient (CLI) | payer MEDICARE | LOC: M CLY 11:19 | PROVIDERS: ATTEND Internal Medicine Pulmonary Disease | DX: R06.00 Dyspnea, unspecified (principal) ==

== ENCOUNTER → 2022-02-26 | Outpatient (REF) | payer MEDICARE ==
[~2022-02-26] MED LIST changes: +ALBU6.7H6 INH; -PROV108A INH
[2022-02-26 17:37] LABS: HEMATOCRIT 37.6 % (36.0-47.0); HEMOGLOBIN 11.9 g/dl (12.0-15.5); MEAN CORPUSCULAR HGB CONC 31.6 g/dl (32.0-36.5); MEAN CORPUSCULAR VOLUME 94.7 fl (80.0-96.0); PLATELET COUNT, AUTOMATED 232 10^3/uL (150-450); RED BLOOD COUNT 3.97 10^6/uL (4.00-5.40); WHITE BLOOD COUNT 6.7 10^3/uL (4.0-10.0)
[2022-02-26 18:00] LABS: HEMOGLOBIN A1c 5.8 % (4.0-6.0)
[2022-02-26 18:04] LABS: THYROID STIMULATING HORMONE 2.256 uIU/ML (0.55-4.78)
[2022-02-26 18:08] LABS: ALBUMIN 3.6 G/DL (3.2-5.2); ALKALINE PHOSPHATASE 110 U/L (46-116); ALT/SGPT 19 U/L (7.0-40); AST/SGOT 17 U/L (<34); BILIRUBIN,TOTAL 0.6 MG/DL (0.3-1.2); BLOOD UREA NITROGEN 28 MG/DL (9-23); CALCIUM LEVEL 9.2 MG/DL (8.3-10.6); CARBON DIOXIDE LEVEL 27 MMOL/L (20-31); CHLORIDE LEVEL 102 MMOL/L (98-107); CREATININE FOR GFR 1.37 MG/DL (0.55-1.30); GLOMERULAR FILTRATION RATE 39.7 (>39); GLUCOSE, FASTING 99 MG/DL (74-106); POTASSIUM SERUM 3.9 MMOL/L (3.5-5.1); SODIUM LEVEL 139 MMOL/L (136-145); TOTAL PROTEIN 6.4 G/DL (5.7-8.2)
[2022-02-26 18:09] LABS: RHEUMATOID FACTOR QUANT < 3.5 IU/ML (<14)
[2022-02-26 18:11] LABS: ERYTHROCYTE SEDIMENTATION RATE 60 mm/hr (0-30)
== END ==
LOC: M SFHCCLAY 13:56
PROVIDERS: ATTEND Family Medicine
DX: G47.33 Obstructive sleep apnea (adult) (pediatric) (principal); E11.9 Type 2 diabetes mellitus without complications; I10 Essential (primary) hypertension; M25.50 Pain in unspecified joint

== ENCOUNTER → 2022-08-28 | Outpatient (REF) | payer MEDICARE ==
[~2022-08-28] MED LIST changes: -LOSA100T45 PO; +LOSA100T46 PO
[2022-08-28 17:28] LABS: ALBUMIN 3.6 G/DL (3.2-5.2); BILIRUBIN,TOTAL 0.9 MG/DL (0.3-1.2); CALCIUM LEVEL 9.1 MG/DL (8.3-10.6); CHOLESTEROL RISK RATIO 1.93 (<5); CREATININE FOR GFR 1.23 MG/DL (0.55-1.30); HDL CHOLESTEROL 78.6 MG/DL (>40); NON-HDL-C 73.4 MG/DL; POTASSIUM SERUM 3.7 MMOL/L (3.5-5.1); TOTAL PROTEIN 6.4 G/DL (5.7-8.2)
[2022-08-28 17:29] LABS: TOTAL 25(OH) VITAMIN D 26.7 NG/ML (20.0-100.0)
[2022-08-28 17:39] LABS: HEMOGLOBIN A1c 6.1 % (4.0-6.0)
== END ==
LOC: M SFHCCLAY 11:52
PROVIDERS: ATTEND Family Medicine
DX: G47.33 Obstructive sleep apnea (adult) (pediatric) (principal); E11.9 Type 2 diabetes mellitus without complications; I10 Essential (primary) hypertension; M25.50 Pain in unspecified joint; M19.90 Unspecified osteoarthritis, unspecified site; I45.0 Right fascicular block; R53.82 Chronic fatigue, unspecified

== ENCOUNTER → 2022-09-02 | Outpatient (REF) | payer MEDICARE ==
[2022-09-02 18:29] LABS: CREATININE, URINE 161.3 MG/DL; MALB URINE SIEMENS < 3.0 MG/L; MAU/CREAT RATIO 1.8 MCG/MG (0.0-30.0)
== END ==
LOC: M SFHCCLAY 17:14
PROVIDERS: ATTEND Family Medicine
DX: E11.9 Type 2 diabetes mellitus without complications (principal); M19.90 Unspecified osteoarthritis, unspecified site; R53.82 Chronic fatigue, unspecified; I10 Essential (primary) hypertension; I45.0 Right fascicular block

== ENCOUNTER → 2023-07-07 | Outpatient (REF) | payer MEDICARE ==
[2023-07-07 17:42] LABS: ALBUMIN 3.5 G/DL (3.2-5.2); BILIRUBIN,TOTAL 0.7 MG/DL (0.3-1.2); CALCIUM LEVEL 9.6 MG/DL (8.3-10.6); CHOLESTEROL RISK RATIO 2.26 (<5); CREATININE FOR GFR 1.46 MG/DL (0.55-1.30); GLOMERULAR FILTRATION RATE 36.8 (>39); HDL CHOLESTEROL 66.8 MG/DL (>40); LDL CHOLESTEROL 68.2 MG/DL (<100); NON-HDL-C 84.2 MG/DL; POTASSIUM SERUM 4.4 MMOL/L (3.5-5.1); TOTAL PROTEIN 6.5 G/DL (5.7-8.2)
[2023-07-07 17:43] LABS: HEMOGLOBIN A1c 6.1 % (4.0-6.0)
[2023-07-07 17:48] LABS: THYROID STIMULATING HORMONE 2.929 uIU/ML (0.55-4.78)
[2023-07-07 17:50] LABS: FREE T4 1.34 NG/DL (0.89-1.76)
== END ==
LOC: M SFHCCLAY 11:50
PROVIDERS: ATTEND Family Medicine
DX: I10 Essential (primary) hypertension (principal); E11.9 Type 2 diabetes mellitus without complications; G47.33 Obstructive sleep apnea (adult) (pediatric); M25.50 Pain in unspecified joint; M19.90 Unspecified osteoarthritis, unspecified site; I45.0 Right fascicular block; R53.82 Chronic fatigue, unspecified

== ENCOUNTER → 2023-07-14 | Outpatient (REF) | payer MEDICARE ==
[2023-07-14 16:55] LABS: APPEARANCE, URINE HAZY (CLEAR); BACTERIA, URINE AUTO NEGATIVE (NEGATIVE); BILIRUBIN, URINE AUTO NEGATIVE (NEGATIVE); BLOOD, URINE BLOOD NEGATIVE (NEGATIVE); COLOR, URINE YELLOW (YELLOW); GLUCOSE, URINE (UA) AUTO NEGATIVE (NEGATIVE); KETONE, URINE AUTO NEGATIVE (NEGATIVE); LEUKOCYTE ESTERASE, URINE AUTO NEGATIVE (NEGATIVE); NITRITE, URINE AUTO NEGATIVE (NEGATIVE); PROTEIN, URINE AUTO NEGATIVE (NEGATIVE); RBC, URINE AUTO 1 /HPF (0-3); SPECIFIC GRAVITY URINE AUTO 1.017 (1.002-1.035); SQUAMOUS EPITHELIAL CELL UR AU 5 /HPF (0-6); UROBILINOGEN, URINE AUTO 0.2 mg/dL (0.0-2.0); WBC, URINE AUTO 1 /HPF (0-3)
[2023-07-14 17:40] LABS: CREATININE, URINE 146.5 MG/DL; MALB URINE SIEMENS < 3.0 MG/L
== END ==
LOC: M LABDRAWC 16:29
PROVIDERS: ATTEND Family Medicine
DX: E11.9 Type 2 diabetes mellitus without complications (principal); I10 Essential (primary) hypertension; M19.90 Unspecified osteoarthritis, unspecified site; I45.0 Right fascicular block; G47.33 Obstructive sleep apnea (adult) (pediatric); M25.50 Pain in unspecified joint; R53.82 Chronic fatigue, unspecified

== ENCOUNTER → 2023-10-29 | Outpatient (REF) | payer MEDICARE ==
[2023-10-29 19:06] LABS: CALCIUM LEVEL 9.5 MG/DL (8.3-10.6); CREATININE FOR GFR 3.01 MG/DL (0.55-1.30); POTASSIUM SERUM 3.5 MMOL/L (3.5-5.1)
== END ==
LOC: M SFHCCLAY 09:23
PROVIDERS: ATTEND Family Medicine
DX: I10 Essential (primary) hypertension (principal)

== ENCOUNTER → 2023-11-09 | Outpatient (REF) | payer MEDICARE ==
[2023-11-09 18:54] LABS: CALCIUM LEVEL 9.9 MG/DL (8.3-10.6); CREATININE FOR GFR 2.21 MG/DL (0.55-1.30); GLOMERULAR FILTRATION RATE 22.8 (>39); POTASSIUM SERUM 2.9 MMOL/L (3.5-5.1)
== END ==
LOC: M SFHCCLAY 11:10
PROVIDERS: ATTEND Family Medicine
DX: I10 Essential (primary) hypertension (principal)

== ENCOUNTER → 2023-11-16 | Outpatient (REF) | payer MEDICARE ==
[2023-11-16 18:36] LABS: CALCIUM LEVEL 9.4 MG/DL (8.3-10.6); CREATININE FOR GFR 1.8 MG/DL (0.55-1.30); GLOMERULAR FILTRATION RATE 28.9 (>39); POTASSIUM SERUM 2.8 MMOL/L (3.5-5.1)
== END ==
LOC: M SFHCCLAY 11:40
PROVIDERS: ATTEND Family Medicine
DX: E87.6 Hypokalemia (principal)

== ENCOUNTER → 2023-11-23 | Outpatient (REF) | payer MEDICARE ==
[2023-11-23 17:38] LABS: BASO # 0.1 10^3/uL (0.0-0.2); BASO % 0.8 % (0.0-1.0); EOS # 0.2 10^3/uL (0.0-0.5); EOS % 2.9 % (0.0-3.0); HEMATOCRIT 35.7 % (36.0-47.0); HEMOGLOBIN 11.5 g/dl (12.0-15.5); LYMPH # 1.7 10^3/uL (1.5-5.0); LYMPH % 25.6 % (24.0-44.0); MEAN CORPUSCULAR HEMOGLOBIN 29.6 pg (27.0-33.0); MEAN CORPUSCULAR HGB CONC 32.2 g/dl (32.0-36.5); MONO # 0.6 10^3/uL (0.0-0.8); MONO % 8.7 % (2.0-8.0); NEUTROPHILS % 61.5 % (36.0-66.0); PLATELET COUNT, AUTOMATED 201 10^3/uL (150-450); RED BLOOD COUNT 3.88 10^6/uL (4.00-5.40); WHITE BLOOD COUNT 6.5 10^3/uL (4.0-10.0)
[2023-11-23 17:42] LABS: ALBUMIN 3.4 G/DL (3.2-5.2); BILIRUBIN,TOTAL 0.7 MG/DL (0.3-1.2); CALCIUM LEVEL 9.8 MG/DL (8.3-10.6); CHOLESTEROL RISK RATIO 2.73 (<5); CREATININE FOR GFR 1.38 MG/DL (0.55-1.30); FREE T4 1.42 NG/DL (0.89-1.76); GLOMERULAR FILTRATION RATE 39.3 (>39); HDL CHOLESTEROL 63.2 MG/DL (>40); LDL CHOLESTEROL 89.8 MG/DL (<100); NON-HDL-C 109.8 MG/DL; POTASSIUM SERUM 3.6 MMOL/L (3.5-5.1); TOTAL PROTEIN 6.5 G/DL (5.7-8.2)
[2023-11-23 17:43] LABS: THYROID STIMULATING HORMONE 1.722 uIU/ML (0.55-4.78)
== END ==
LOC: M SFHCCLAY 12:03
PROVIDERS: ATTEND Family Medicine
DX: I10 Essential (primary) hypertension (principal); G47.33 Obstructive sleep apnea (adult) (pediatric); E11.9 Type 2 diabetes mellitus without complications; J45.30 Mild persistent asthma, uncomplicated

== ENCOUNTER → 2024-03-09 | Outpatient (REF) | payer MEDICARE ==
[~2024-03-09] MED LIST changes: -DESL5TAB28 PO; +DESL5TAB30 PO
[2024-03-09 17:30] LABS: BASO % 0.4 % (0.0-1.0); EOS # 0.2 10^3/uL (0.0-0.5); EOS % 2.8 % (0.0-3.0); HEMATOCRIT 36.2 % (36.0-47.0); HEMOGLOBIN 11.5 g/dl (12.0-15.5); LYMPH # 1.7 10^3/uL (1.5-5.0); LYMPH % 23.9 % (24.0-44.0); MEAN CORPUSCULAR HEMOGLOBIN 29.4 pg (27.0-33.0); MEAN CORPUSCULAR HGB CONC 31.8 g/dl (32.0-36.5); MEAN CORPUSCULAR VOLUME 92.6 fl (80.0-96.0); MONO # 0.6 10^3/uL (0.0-0.8); MONO % 8.3 % (2.0-8.0); NEUTROPHILS # 4.7 10^3/uL (1.5-8.5); NEUTROPHILS % 64.2 % (36.0-66.0); PLATELET COUNT, AUTOMATED 246 10^3/uL (150-450); RED BLOOD COUNT 3.91 10^6/uL (4.00-5.40); WHITE BLOOD COUNT 7.2 10^3/uL (4.0-10.0)
[2024-03-09 17:41] LABS: ALBUMIN 3.5 G/DL (3.2-5.2); BILIRUBIN,TOTAL 0.6 MG/DL (0.3-1.2); CALCIUM LEVEL 9.7 MG/DL (8.3-10.6); CHOLESTEROL RISK RATIO 2.45 (<5); CREATININE FOR GFR 1.28 MG/DL (0.55-1.30); GLOMERULAR FILTRATION RATE 42.7 (>32); HDL CHOLESTEROL 66.3 MG/DL (>40); LDL CHOLESTEROL 76.7 MG/DL (<100); NON-HDL-C 96.7 MG/DL; POTASSIUM SERUM 4.2 MMOL/L (3.5-5.1); TOTAL PROTEIN 6.8 G/DL (5.7-8.2)
[2024-03-09 17:43] LABS: FREE T4 1.39 NG/DL (0.89-1.76); THYROID STIMULATING HORMONE 2.442 uIU/ML (0.55-4.78)
[2024-03-09 17:53] LABS: HEMOGLOBIN A1c 6.3 % (4.0-6.0)
== END ==
LOC: M SFHCCLAY 10:54
PROVIDERS: ATTEND Nurse Practitioner Family
DX: I10 Essential (primary) hypertension (principal); E11.9 Type 2 diabetes mellitus without complications; R53.82 Chronic fatigue, unspecified; R79.89 Other specified abnormal findings of blood chemistry; E55.9 Vitamin D deficiency, unspecified

== ENCOUNTER → 2024-09-05 | Outpatient (REF) | payer MEDICARE ==
[2024-09-05 18:41] LABS: BASO # 0.0 10^3/uL (0.0-0.2); BASO % 0.5 % (0.0-1.0); EOS # 0.2 10^3/uL (0.0-0.5); EOS % 3.1 % (0.0-3.0); LYMPH # 1.5 10^3/uL (1.5-5.0); LYMPH % 19.6 % (24.0-44.0); MONO # 0.6 10^3/uL (0.0-0.8); MONO % 7.2 % (2.0-8.0); NEUTROPHILS # 5.3 10^3/uL (1.5-8.5); NEUTROPHILS % 68.7 % (36.0-66.0); PLATELET COUNT, AUTOMATED 241 10^3/uL (150-450)
[2024-09-05 19:18] LABS: FREE T4 1.45 NG/DL (0.89-1.76)
[2024-09-05 19:22] LABS: ALT/SGPT 21.0 U/L (7.0-40); AST/SGOT 22.0 U/L (<34); CALCIUM LEVEL 9.5 MG/DL (8.3-10.6); CARBON DIOXIDE LEVEL 30.0 MMOL/L (20-31); CHLORIDE LEVEL 101.0 MMOL/L (98-107); CHOLESTEROL LEVEL 165.0 MG/DL (<200); CHOLESTEROL RISK RATIO 1.91 (<5); CREATININE FOR GFR 1.39 MG/DL (0.55-1.30); GLOMERULAR FILTRATION RATE 38.4 (>32); LDL CHOLESTEROL 64.3 MG/DL (<100); NON-HDL-C 78.9 MG/DL; POTASSIUM SERUM 3.9 MMOL/L (3.5-5.1); SODIUM LEVEL 143.0 MMOL/L (136-145); TRIGLYCERIDES LEVEL 73.0 MG/DL (<150)
[2024-09-05 20:03] LABS: ESTIMATED AVERAGE GLUCOSE 123.0 MG/DL (60-110)
== END ==
LOC: M SFHCCLAY 10:52
PROVIDERS: ATTEND Nurse Practitioner Family
DX: J32.0 Chronic maxillary sinusitis (principal); I10 Essential (primary) hypertension; M17.12 Unilateral primary osteoarthritis, left knee; R79.89 Other specified abnormal findings of blood chemistry; G47.33 Obstructive sleep apnea (adult) (pediatric); E11.9 Type 2 diabetes mellitus without complications; J45.30 Mild persistent asthma, uncomplicated; I87.2 Venous insufficiency (chronic) (peripheral); R26.2 Difficulty in walking, not elsewhere classified

== ENCOUNTER → 2024-09-13 | Outpatient (REF) | payer MEDICARE ==
[2024-09-13 19:08] LABS: CREATININE, URINE 32.3 MG/DL; MALB URINE SIEMENS < 3.0 MG/L
== END ==
LOC: M SFHCCLAY 11:08
PROVIDERS: ATTEND Nurse Practitioner Family
DX: J32.0 Chronic maxillary sinusitis (principal); I10 Essential (primary) hypertension; M17.12 Unilateral primary osteoarthritis, left knee; R79.89 Other specified abnormal findings of blood chemistry; G47.33 Obstructive sleep apnea (adult) (pediatric); E11.9 Type 2 diabetes mellitus without complications; J45.30 Mild persistent asthma, uncomplicated; I87.2 Venous insufficiency (chronic) (peripheral); R26.2 Difficulty in walking, not elsewhere classified